=== PATIENT | male | born 1955 | race Caucasian/White ===

== ENCOUNTER 2017-09-19 17:50 | Emergency (ER) | payer MEDICARE ==
[2017-09-19] MEDS ORDERED: Ketorolac 60 MG/2 ML SDV IM ONE (18:13)
--- NOTE | 2017-09-19 18:15 | EDM.PDOC ---
ED HPI GENERAL MEDICAL PROBLEM - General Chief Complaint: Lower Extremity Injury/Pain Stated Complaint: PAIN RT KNEE Time Seen by Provider: 09/19/17 18:00 Source of Information: Reports: Patient History Limitations: Reports: No Limitations - History of Present Illness INITIAL COMMENTS - FREE TEXT/NARRATIVE: History of present illness: [62-year-old male comes in complaining of right knee pain. Patient indicates he is having pain status post mechanical fall and subsequently that has been causing him unbearable pain and he is suspicious that he has some nature of significant injury to the knee consistent with injury and then to his previous knee in the past] Review of systems: As per history of present illness and below otherwise all systems reviewed and negative. Past medical history: As per history of present illness and as reviewed below otherwise noncontributory. Surgical history: As per history of present illness and as reviewed below otherwise noncontributory. Social history: No reported history of drug or alcohol abuse. Family history: As per history of present illness and as reviewed below otherwise noncontributory. Physical exam: HEENT: Atraumatic, normocephalic, pupils reactive, negative for conjunctival pallor or scleral icterus, mucous membranes moist, throat clear, neck supple, nontender, trachea midline. Lungs: Clear to auscultation, breath sounds equal bilaterally, chest nontender. Heart: S1S2, regular, negative for clicks, rubs, or JVD. Abdomen: Soft, nondistended, nontender. Negative for masses or hepatosplenomegaly. Negative for costovertebral tenderness. Pelvis: Stable nontender. Genitourinary: Deferred. Rectal: Deferred. Extremities: Right knee with a significant amount of pain and guarding without obvious trauma negative for cords or calf pain. Neurovascular unremarkable. Neuro: Awake, alert, oriented. Cranial nerves II through XII unremarkable. Cerebellum unremarkable. Motor and sensory unremarkable throughout. Exam nonfocal. X-ray negative for acute changes Diagnostics: [X-ray] Therapeutics: [] Impression: [Right knee pain] Plan: [Pain medication follow-up with orthopedics] Definitive disposition and diagnosis as appropriate pending reevaluation and review of above. Right Knee Pain Score (Numeric/FACES): 8 - Related Data Allergies Allergy/AdvReac Type Severity Reaction Status Date / Time erythromycin base Allergy Hallucinati Verified 09/19/17 18:08 [Erythromycin Base] ons morphine Allergy Anxiety Verified 09/19/17 18:08 pork derived (porcine) Allergy Nausea and Verified 09/19/17 18:08 Vomiting Sulfa (Sulfonamide Allergy Other Verified 09/19/17 18:08 Antibiotics) Home Meds: Home Meds Insulin Detemir [Levemir Flextouch] 45 units SUBCUT QAM 05/21/16 [History] Potassium Chloride [Klor-Con 10] 10 meq PO BID 05/21/16 [History] Clopidogrel [Plavix] 75 mg PO DAILY 08/14/16 [History] Metoprolol Succinate [Toprol XL] 25 mg PO DAILY 08/14/16 [History] Furosemide 40 mg PO BID 08/15/16 [History] Insulin Aspart [Novolog Flexpen] 25 units SUBCUT ACDINNER 08/15/16 [History] Insulin Aspart [Novolog Flexpen] 25 units SUBCUT ACLUNCH 08/15/16 [History] Lisinopril 10 mg PO DAILY 08/15/16 [History] atorvaSTATin Calcium [Atorvastatin Calcium] 40 mg PO DAILY 08/15/16 [History] Amoxicillin/Clavulanate K [Augmentin 875 MG/125 MG] 1 tab PO Q12HR #8 tablet 12/28 [Rx] Insulin Aspart [NovoLOG] 25 unit SUBCUT ACBREAKFAST #4 pen 08/17/16 [Rx] Insulin Aspart [Novolog Flexpen] See Protocol SQ ACBREAKFAST #5 pen 08/17/16 [Rx ] Insulin Aspart [Novolog Flexpen] See Protocol SQ ACDINNER #3 pen 08/17/16 [Rx] Insulin Detemir [Levemir] 25 unit SQ BEDTIME #10 ml 08/17/16 [Rx] Nicotine [Habitrol] 14 mg TRDERM DAILY #14 patch 08/17/16 [Rx] Insulin Aspart [NovoLOG] See Protocol SUBCUT ACLUNCH #2 pen 08/18/16 [Rx] Past Medical History HEENT History: Reports: Impaired Vision Other HEENT History: wears glasses, has upper and lower dentutes Cardiovascular History: Reports: High Cholesterol, Hypertension, [place] Respiratory History: Reports: Sleep Apnea Other Respiratory History: uses CPAP Gastrointestinal History: Reports: GERD Genitourinary History: Reports: Renal Calculus Musculoskeletal History: Reports: Back Pain, Chronic, Fracture Other Musculoskeletal History: hx of fx ribs and fingers Neurological History: Reports: Concussion, Migraines, Seizure Other Neuro History: hx of seizures as a child, none for 40 years Psychiatric History: Reports: None Endocrine/Metabolic History: Reports: Diabetes, Type II, Obesity/BMI 30+ Hematologic History: Reports: None Immunologic History: Reports: None, Other (See Below) Other Immunologic History: 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, the last was 8 years ago Oncologic (Cancer) History: Reports: None Dermatologic History: Reports: Other (See Below) Other Dermatologic History: dry spots on back - Infectious Disease History Infectious Disease History: Reports: MRSA - Past Surgical History Head Surgeries/Procedures: Reports: None Cardiovascular Surgical History: Reports: Coronary Artery Bypass GI Surgical History: Reports: Appendectomy, Colonoscopy, Hernia, Inguinal Musculoskeletal Surgical History: Reports: Shoulder Surgery Social & Family History - Family History Family Medical History: Noncontributory - Tobacco Use Smoking Status *Q: Unknown Ever Smoked Years of Tobacco use: 44 Packs/Tins Daily: 0.5 Used Tobacco, but Quit: No Second Hand Smoke Exposure: Yes - Caffeine Use Caffeine Use: Reports: Coffee, Soda - Alcohol Use Days Per Week of Alcohol Use: 0 - Recreational Drug Use Recreational Drug Use: No Review of Systems - Review of Systems Review Of Systems: See Below (See history of present illness) ED EXAM, GENERAL - Physical Exam Exam: See Below (History of present illness) Course - Vital Signs Last Recorded V/S: Last Vital Signs Temp 36.4 C 09/19/17 18:08 Pulse 80 09/19/17 18:08 Resp 18 09/19/17 18:08 BP 149/69 H 09/19/17 18:08 Pulse Ox 97 09/19/17 18:08 - Orders/Labs/Meds Orders: Active Orders 24 hr Category Date Time Status Knee 3V Rt [CR] Stat Exams 09/19/17 18:13 Taken Meds: Medications Discontinued Medications Generic Name Dose Route Start Last Admin Trade Name Freq PRN Reason Stop Dose Admin Ketorolac Tromethamine 60 mg 09/19/17 18:13 Toradol IM 09/19/17 18:14 ONETIME ONE Departure - Departure Time of Disposition: 20:22 Disposition: Home, Self-Care 01 Condition: Good Clinical Impression: Knee pain, right - Discharge Information Referrals: Meenakshi,Anshul, DO [Primary Care Provider] - Forms: ED Department Discharge Additional Instructions: The following information is given to patients seen in the emergency department who are being discharged to home. This information is to outline your options for follow-up care. We provide all patients seen in our emergency department with a follow-up referral. The need for follow-up, as well as the timing and circumstances, are variable depending upon the specifics of your emergency department visit. If you don't have a primary care physician on staff, we will provide you with a referral. We always advise you to contact your personal physician following an emergency department visit to inform them of the circumstance of the visit and for follow-up with them and/or the need for any referrals to a consulting specialist. The emergency department will also refer you to a specialist when appropriate. This referral assures that you have the opportunity for follow-up care with a specialist. All of these measure are taken in an effort to provide you with optimal care, which includes your follow-up. Under all circumstances we always encourage you to contact your private physician who remains a resource for coordinating your care. When calling for follow-up care, please make the office aware that this follow-up is from your recent emergency room visit. If for any reason you are refused follow-up, please contact the [facility] Emergency Department at and asked to speak to the emergency department charge nurse. The x-ray of your knee was negative for any acute changes This does not mean there was no soft tissue injury as discussed you are being provided an orthopedic referral for further diagnostic evaluation and workup of your knee pain Please take pain medication as prescribed follow up with your primary care provider in 2-3 days return to ED as needed as discussed - My Orders Last 24 Hours: My Active Orders 09/19/17 18:13 Knee 3V Rt [CR] Stat - Assessment/Plan Last 24 Hours: My Active Orders 09/19/17 18:13 Knee 3V Rt [CR] Stat
[2017-09-19 21:03] VITALS: BP 137/69
--- NOTE | 2017-09-21 10:42 | CR ---
EXAM DATE: 09/19/17 PATIENT'S AGE: 62 Patient: JENSEN HARP Facility: [place], [place] Site . Site : 1955 Study: XRay Knee Right [id number]/6/[id number] 7:08:35 PM Ordering Physician: Doctor Sanchez Final Report: INDICATION: Right knee pain. TECHNIQUE: Knee radiographs 3 views COMPARISON: None FINDINGS: Bones: Alignment is normal. No acute fractures or aggressive osseous lesions seen. Joint spaces: Minimal narrowing of the medial compartment with tiny medial marginal osteophytes and tibial spurring. No joint effusion. Soft tissues: Surgical clips medial to the proximal right tibia. IMPRESSION: 1. No acute osseous injuries are identified. No joint effusion. Minimal degenerative change of the right knee, involving the medial compartment. Dictated by Escobar Thomas MD @ 09/19/2017 7:40:20 PM Dictated by: Escobar Thomas MD @ 09/19/2017 19:40:46 (Electronic Signature) Report Signed by Proxy. CONCHITA
== END 2017-09-19 20:37 | disposition home or self-care (01) ==
LOC: MW.ED 17:50
DX: M25.561 Pain in right knee (principal); E78.00 Pure hypercholesterolemia, unspecified; I10 Essential (primary) hypertension; E11.9 Type 2 diabetes mellitus without complications; Z88.1 Allergy status to other antibiotic agents; Z88.2 Allergy status to sulfonamides; Z88.5 Allergy status to narcotic agent; Z79.899 Other long term (current) drug therapy; Z79.4 Long term (current) use of insulin
CPT/HCPCS: 73562-26-RT; 73562-RT; 99283

== ENCOUNTER 2019-08-15 07:12 | Day surgery (SDC) | payer MEDICARE ==
[~2019-08-15 07:12] MED LIST: Lactated Ringers 1,000 ML IV SCH; Lidocaine 2% 5 ML SDV ONE; Midazolam 1 MG/ML 2 ML SDV ONE; Propofol 200 MG/20 ML SDV ONE; fentaNYL 100 MCG/2 ML SDV ONE
--- NOTE | 2019-08-15 08:04 | PCM.PREANE ---
Preanesthetic Assessment - Anesthesia/Transfusion/Family Hx Anesthesia History: Prior Anesthesia Without Reaction Family History of Anesthesia Reaction: No Transfusion History: Prior Transfusion Without Reaction - Review of Systems General: No Symptoms Pulmonary: No Symptoms Cardiovascular: No Symptoms Gastrointestinal: No Symptoms Neurological: No Symptoms - Physical Assessment NPO Status Date: 08/14/19 Vital Signs: Last Vital Signs Temp 96.8 F 08/15/19 07:24 Pulse 77 08/15/19 07:24 Resp 14 08/15/19 07:24 BP 101/59 L 08/15/19 07:24 Pulse Ox 98 08/15/19 07:24 Height: 5 ft 9 in Weight: 97.522 kg ASA Class: 3 Mental Status: Alert & Oriented x3 Airway Class: Mallampati = 2 Dentition: Reports: Normal Dentition ROM/Head Extension: Full Lungs: Clear to Auscultation, Normal Respiratory Effort Cardiovascular: Regular Rate, Regular Rhythm - Lab Values: Laboratory Last Values POC Glucose 228 mg/dL (60-110) H 08/15/19 07:26 - Allergies Allergies/Adverse Reactions: Allergies Allergy/AdvReac Type Severity Reaction Status Date / Time erythromycin base Allergy Hallucinati Verified 08/15/19 07:56 [Erythromycin Base] ons morphine Allergy Anxiety Verified 08/15/19 07:56 pork derived (porcine) Allergy Nausea and Verified 08/15/19 07:56 Vomiting Sulfa (Sulfonamide Allergy Other Verified 08/15/19 07:57 Antibiotics) - Blood Blood Available: No - Acknowledgements Anesthesia Type Planned: General Anesthesia Pt an Appropriate Candidate for the Planned Anesthesia: Yes Alternatives and Risks of Anesthesia Discussed w Pt/Guardian: Yes Pt/Guardian Understands and Agrees with Anesthesia Plan: Yes Additional Comments: PMH: 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 CAD- ami in 2014, 3 vessel CABG in 2014 htn, hld, dm- last insulin 2230= long acting only- am ooppoou=438 gerd/gastritis HFpEF - ef 60% in 2018 obesity - bmi=32 ANGELINA- uses CPAP nightly smoker- 1 to 2 packs/day hx of seizure- prob related to CHI- not alcohol withdrawl or epilepsy- on no meds PLAN: TIVA PreAnesthesia Questionnaire HEENT History: Reports: Impaired Vision Other HEENT History: wears glasses, has upper and lower dentutes Cardiovascular History: Reports: Bypass, CAD, High Cholesterol, Hypertension, [place] Other Cardiovascular History: left ventricular diastolic dysfunction Respiratory History: Reports: Pneumonia, Recurrent, Sleep Apnea Other Respiratory History: uses CPAP Gastrointestinal History: Reports: Colon Polyp, Fatty Liver, GERD, Pancreatitis Genitourinary History: Reports: Renal Calculus Musculoskeletal History: Reports: Arthritis, Back Pain, Chronic, Fracture, Osteoarthritis Other Musculoskeletal History: hx of fx ribs and fingers Neurological History: Reports: Concussion, Head Trauma, Migraines, Seizure Other Neuro History: hx of seizures as a child, none for 40 years, migraines as a child Psychiatric History: Reports: None Endocrine/Metabolic History: Reports: Diabetes, Type II, IDDM, Obesity/BMI 30+ Hematologic History: Reports: Blood Transfusion(s), Iron Deficiency Immunologic History: Reports: None, Other (See Below) Other Immunologic History: 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, the last was 8 years ago Oncologic (Cancer) History: Reports: None Dermatologic History: Reports: None, Other (See Below) - Infectious Disease History Infectious Disease History: Reports: MRSA - Past Surgical History Head Surgeries/Procedures: Reports: None HEENT Surgical History: Reports: Tonsillectomy Cardiovascular Surgical History: Reports: Coronary Artery Bypass Other Cardiovascular Surgeries/Procedures: January 2015 triple bypass Respiratory Surgical History: Reports: None GI Surgical History: Reports: Appendectomy, Colonoscopy, EGD, Hernia, Inguinal Other GI Surgeries/Procedures: ventral hernia repair x3 Male Surgical History: Reports: Lithotripsy (ESWL) Other Male Surgeries/Procedures: able to pass several kidney stones Endocrine Surgical History: Reports: None Neurological Surgical History: Reports: None Musculoskeletal Surgical History: Reports: Arthroscopic Knee, Shoulder Surgery Other Musculoskeletal Surgeries/Procedures:: surgery for dislocated rt shoulder Oncologic Surgical History: Reports: None Dermatological Surgical History: Reports: None - SUBSTANCE USE Smoking Status *Q: Current Every Day Smoker Tobacco Use Within Last Twelve Months: Cigarettes - HOME MEDS Home Medications: Home Meds Potassium Chloride [Klor-Con 10] 10 meq PO ASDIRECTED 05/21/16 [History] Metoprolol Succinate [Toprol XL] 25 mg PO DAILY 08/14/16 [History] Furosemide 40 mg PO DAILY PRN 08/15/16 [History] atorvaSTATin Calcium [Atorvastatin Calcium] 40 mg PO BEDTIME 08/15/16 [History] Aspirin [Low Dose Aspirin EC] 81 mg PO DAILY 08/09/19 [History] Calcium Carbonate [Tums] 1 tab.chew CHEW ASDIRECTED PRN 08/09/19 [History] Insulin Glargine,Hum.Rec.Anlog [Basaglar Kwikpen U-100] 90 units SUBCUT DAILY [History] Insulin Lispro [Humalog Kwikpen U-100] 1 injection SUBCUT ASDIRECTED 08/09/19 [ History] metFORMIN HCl [Metformin HCl ER] 500 mg PO BID 08/09/19 [History] - CURRENT (IN HOUSE) MEDS Current Meds: Current Medications Lactated Ringer's (Ringers, Lactated) 1,000 mls @ 125 mls/hr IV ASDIRECTED TIERA Last Admin: 08/15/19 07:47 Dose: 125 mls/hr Discontinued Medications Fentanyl (Sublimaze) Confirm Administered Dose 100 mcg .ROUTE .STK-MED ONE Stop: 08/15/19 07:11 Lidocaine (Xylocaine-Mpf 2%) Confirm Administered Dose 5 ml .ROUTE .STK-MED ONE Stop: 08/15/19 07:11 Midazolam HCl (Versed 1 Mg/Ml) Confirm Administered Dose 2 mg .ROUTE .STK-MED ONE Stop: 08/15/19 07:11 Propofol (Diprivan 20 Ml) Confirm Administered Dose 400 mg .ROUTE .STK-MED ONE Stop: 08/15/19 07:11
[2019-08-15] MEDS ORDERED: Glycopyrrolate 0.2 MG/ML SDV ONE ×2 (08:51→08:56)
[2019-08-15] MEDS ORDERED: ePHEDrine 50 MG/ML SDV ONE (08:56)
--- NOTE | 2019-08-15 09:34 | PCM.OPNOTE ---
- General Post-Op/Procedure Note Date of Surgery/Procedure: 08/15/19 Operative Procedure(s): Esophagogastroduodenoscopy with biopsy. Colonoscopy with cold sigmoid colon polypectomy 2. Pre Op Diagnosis: Gastroesophageal reflux disease. Unexplained weight loss. Personal history of colon polyps. Post-Op Diagnosis: Mild to moderate chronic gastritis. Mild distal esophagitis. Sigmoid colon polyp 2. Anesthesia Technique: MAC (ASA III) Primary Surgeon: Mario Siddiqui Condition: Good Free Text/Narrative:: DICTATION [id number] CPT CODE 96327/51701
[2019-08-15] MEDS ORDERED: Lactated Ringers 1,000 ML IV SCH (09:45)
--- NOTE | 2019-08-15 09:52 | OR ---
SURGEON: Mario Siddiqui M.D. DATE OF PROCEDURE: 08/15/2019 OPERATION PERFORMED: Esophagogastroduodenoscopy with biopsy. PRIMARY SURGEON: Mario Siddiqui MD. ANESTHESIA: MAC. ASA CLASSIFICATION: III. PREOPERATIVE DIAGNOSES: 1. Gastroesophageal reflux disease. 2. Unexplained weight loss. POSTOPERATIVE DIAGNOSES: 1. Mild to moderate chronic gastritis. 2. Mild distal esophagitis. DESCRIPTION OF PROCEDURE: The patient was taken to the endoscopy room and positioned on the endoscopy table in the left lateral decubitus position. Time-out was called for appropriate identification of the patient and procedure. Monitored anesthesia care was provided. The bite block was placed between the patient's teeth. A gastroscope was inserted through the bite block into the oropharynx and advanced without difficulty through the esophagus and stomach into the duodenum where examination was now carried out in a retrograde fashion. The duodenum showed no acute inflammatory changes or ulcerations. The stomach does show mild to moderate chronic gastritis. No acute ulcerations were noted. Biopsies of the distal stomach were obtained to rule out the presence of Helicobacter pylori. The gastroscope was retroflexed to visualize the proximal stomach. No hiatal hernia was noted and there were no significant inflammatory changes or ulcers noted proximally. The gastroscope was then straightened and slowly withdrawn. The greater and lesser curvatures were well visualized. Again, no tumors or polyps were seen in the proximal stomach. The GE junction was well defined and does show some mild inflammatory changes. Separate biopsies of the distal esophagus were obtained. The esophagus itself demonstrates good contractility. No mid or proximal lesions were identified. I did attempt to look at the vocal cords, but I was not able to visualize them well and did not want to run the risk of laryngeal spasm. The gastroscope was then removed with the patient having tolerated this portion of the procedure well. Following colonoscopy, he was taken to recovery room in stable condition. BOZENA / EDIS /[id number]
--- NOTE | 2019-08-15 10:01 | OR ---
SURGEON: Mario Siddiqui M.D. DATE OF PROCEDURE: 08/15/2019 OPERATION PERFORMED: Colonoscopy with cold proximal and distal sigmoid colon polypectomies. PRIMARY SURGEON: Mario Siddiqui MD. ANESTHESIA: MAC. ASA CLASSIFICATION: III. PREOPERATIVE DIAGNOSES: 1. Personal history of colon polyps. 2. Unexplained weight loss. POSTOPERATIVE DIAGNOSIS: Proximal and distal sigmoid colon polyps. DESCRIPTION OF PROCEDURE: With the patient having completed esophagogastroduodenoscopy, he was maintained in the left lateral decubitus position. A colonoscope was inserted into the rectum and advanced with minimal difficulty to the cecum. The cecum was identified by internal landmarks and external pressure. The colonoscope was retroflexed to visualize the ascending colon from below, then straightened and slowly withdrawn. The cecum, ascending colon, hepatic flexure, transverse colon, splenic flexure, and descending colon were very well visualized. No tumors, polyps, diverticula, or angiodysplastic changes were noted. There was no evidence of inflammatory bowel disease. Two polyps were encountered in the sigmoid colon, approximately 20 cm apart, and were removed separately and sent for separate histologic analysis. There was no evidence of sigmoid diverticulosis. The colonoscope was withdrawn to the rectum and retroflexed to visualize the anal orifice from above. No tumors, polyps, or acute hemorrhoidal changes were noted. The colonoscope was then straightened, the rectum aspirated, and the colonoscope removed. The patient tolerated the procedure well and was taken to recovery room in stable condition. BOZENA / EDIS /[id number]
[2019-08-15 10:35] VITALS: BP 139/73; PULSE 79
--- NOTE | 2019-08-15 12:10 | PCM.POSTAN ---
POST ANESTHESIA ASSESSMENT - MENTAL STATUS Mental Status: Alert, Oriented - VITAL SIGNS Vital Signs: Last Vital Signs Temp 98.6 F 08/15/19 09:25 Pulse 79 08/15/19 09:55 Resp 14 08/15/19 09:55 BP 139/73 08/15/19 09:55 Pulse Ox 95 08/15/19 09:55 - RESPIRATORY Respiratory Status: Respiratory Rate WNL, Airway Patent, O2 Saturation Stable - CARDIOVASCULAR CV Status: Pulse Rate WNL, Blood Pressure Stable - GASTROINTESTINAL GI Status: No Symptoms - POST OP HYDRATION Hydration Status: Adequate & Stable
--- NOTE | 2019-08-15 12:10 | PCM48HPAN ---
Post Anesthesia Note - EVALUATION WITHIN 48HRS OF ANESTHETIC Vital Signs in Normal Range: Yes Patient Participated in Evaluation: Yes Respiratory Function Stable: Yes Airway Patent: Yes Cardiovascular Function Stable: Yes Hydration Status Stable: Yes Pain Control Satisfactory: Yes Nausea and Vomiting Control Satisfactory: Yes Mental Status Recovered: Yes Vital Signs: Last Vital Signs Temp 98.6 F 08/15/19 09:25 Pulse 79 08/15/19 09:55 Resp 14 08/15/19 09:55 BP 139/73 08/15/19 09:55 Pulse Ox 95 08/15/19 09:55
== END 2019-08-15 10:34 | disposition home or self-care (01) ==
LOC: MW.SDS 07:12
PROVIDERS: ATTEND Surgery
DX: K21.0 Gastro-esophageal reflux disease with esophagitis (principal); R63.4 Abnormal weight loss; K63.5 Polyp of colon; K29.50 Unspecified chronic gastritis without bleeding; K58.9 Irritable bowel syndrome, unspecified; I11.0 Hypertensive heart disease with heart failure; I50.9 Heart failure, unspecified; I25.10 Atherosclerotic heart disease of native coronary artery without angina pectoris; E78.5 Hyperlipidemia, unspecified; G47.33 Obstructive sleep apnea (adult) (pediatric); M19.90 Unspecified osteoarthritis, unspecified site; G43.909 Migraine, unspecified, not intractable, without status migrainosus; E11.9 Type 2 diabetes mellitus without complications; E66.01 Morbid (severe) obesity due to excess calories; Z79.4 Long term (current) use of insulin; Z88.1 Allergy status to other antibiotic agents; Z86.010 Personal history of colon polyps; Z88.5 Allergy status to narcotic agent; Z91.018 Allergy to other foods; Z88.2 Allergy status to sulfonamides; Z79.82 Long term (current) use of aspirin; Z79.899 Other long term (current) drug therapy; Z90.49 Acquired absence of other specified parts of digestive tract
CPT/HCPCS: 43239; 45378; 82962; J2001; J2250; J2704; J3010; J3490; J7120; 00813

== ENCOUNTER 2020-07-20 06:32 | Day surgery (SDC) | payer MEDICARE ==
[~2020-07-20 06:32] MED LIST changes: -Lidocaine 2% 5 ML SDV ONE; -Midazolam 1 MG/ML 2 ML SDV ONE; -Propofol 200 MG/20 ML SDV ONE; -fentaNYL 100 MCG/2 ML SDV ONE
[2020-07-20] MEDS ORDERED: Lidocaine 1% 20 ML MDV ONE (06:57)
[2020-07-20] MEDS ORDERED: Midazolam 1 MG/ML 2 ML SDV ONE (06:58)
[2020-07-20] MEDS ORDERED: Propofol 200 MG/20 ML SDV ONE (06:58)
[2020-07-20] MEDS ORDERED: Glycopyrrolate 0.2 MG/ML SDV ONE (07:08)
[2020-07-20] MEDS ORDERED: Lidocaine 2% 5 ML SDV ONE (07:08)
--- NOTE | 2020-07-20 07:16 | PCM.PREANE ---
Preanesthetic Assessment - Anesthesia/Transfusion/Family Hx Anesthesia History: Prior Anesthesia Without Reaction Family History of Anesthesia Reaction: No Transfusion History: Prior Transfusion Without Reaction - Review of Systems General: No Symptoms Pulmonary: No Symptoms Cardiovascular: No Symptoms Gastrointestinal: No Symptoms Neurological: No Symptoms Other: Reports: None - Physical Assessment NPO Status Date: 07/19/20 Vital Signs: Last Vital Signs Temp 95.7 F L 07/20/20 06:40 Pulse 78 07/20/20 06:40 Resp 16 07/20/20 06:40 BP 92/60 07/20/20 06:40 Pulse Ox 98 07/20/20 06:40 Height: 5 ft 9 in Weight: 97.522 kg ASA Class: 3 Mental Status: Alert & Oriented x3 Airway Class: Mallampati = 2 Dentition: Reports: Dentures (full upper), Partial (partial lower) ROM/Head Extension: Full Lungs: Clear to Auscultation, Normal Respiratory Effort Cardiovascular: Regular Rate, Regular Rhythm - Allergies Allergies/Adverse Reactions: Allergies Allergy/AdvReac Type Severity Reaction Status Date / Time erythromycin base Allergy Hallucinati Verified 07/16/20 12:58 [Erythromycin Base] ons morphine Allergy Anxiety Verified 07/16/20 12:58 pork derived (porcine) Allergy Nausea and Verified 07/16/20 12:58 Vomiting Sulfa (Sulfonamide Allergy Other Verified 07/16/20 12:58 Antibiotics) - Blood Blood Available: No - Anesthesia Plan Pre-Op Medication Ordered: None - Acknowledgements Anesthesia Type Planned: General Anesthesia (tiva) Pt an Appropriate Candidate for the Planned Anesthesia: Yes Alternatives and Risks of Anesthesia Discussed w Pt/Guardian: Yes Pt/Guardian Understands and Agrees with Anesthesia Plan: Yes Additional Comments: PMH: smoker, barretts, dm2-on insulin- poor controll- HbA1c run consistently in the 13's, lisa-on cpap, cad- cabg in 2014, hx seizure-on no anticonvulsants, RAD, has aortic schlerosis but NO aortic stenosis by echo in Apr 2020 (dx of in active problem list is incorrect), hx of chf but most recent ef was 55-60% PLAN: tiva PreAnesthesia Questionnaire HEENT History: Reports: Impaired Vision Other HEENT History: wears glasses, has upper dentures and lower partial plate Cardiovascular History: Reports: Bypass, CAD, High Cholesterol, Hypertension, [place] Other Cardiovascular History: left ventricular diastolic dysfunction Respiratory History: Reports: COPD, Pneumonia, Recurrent, Sleep Apnea Other Respiratory History: uses CPAP Gastrointestinal History: Reports: Colon Polyp, Fatty Liver, GERD, Pancreatitis Genitourinary History: Reports: Renal Calculus Musculoskeletal History: Reports: Arthritis, Back Pain, Chronic, Fracture, Osteoarthritis Other Musculoskeletal History: hx of fx ribs, fingers and back Neurological History: Reports: Concussion, Head Trauma, Migraines, Seizure Other Neuro History: hx of seizures as a child, none for 40 years, migraines as a child Psychiatric History: Reports: None Endocrine/Metabolic History: Reports: Diabetes, Type II, IDDM, Obesity/BMI 30+ Hematologic History: Reports: Blood Transfusion(s), Iron Deficiency Immunologic History: Reports: Other (See Below) Other Immunologic History: 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, 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 Oncologic (Cancer) History: Reports: None Dermatologic History: Reports: None, Other (See Below) - Infectious Disease History Infectious Disease History: Reports: MRSA Other Infectious Disease History: left leg 11 years ago - Past Surgical History Head Surgeries/Procedures: Reports: None HEENT Surgical History: Reports: Tonsillectomy Cardiovascular Surgical History: Reports: Coronary Artery Bypass Other Cardiovascular Surgeries/Procedures: January 2015 triple bypass Respiratory Surgical History: Reports: None GI Surgical History: Reports: Appendectomy, Colonoscopy, EGD, Hernia, Inguinal Other GI Surgeries/Procedures: ventral hernia repair x3 Male Surgical History: Reports: Lithotripsy (ESWL) Other Male Surgeries/Procedures: able to pass several kidney stones Endocrine Surgical History: Reports: None Neurological Surgical History: Musculoskeletal Surgical History: Reports: Arthroscopic Knee, Shoulder Surgery Other Musculoskeletal Surgeries/Procedures:: surgery for dislocated rt shoulder Oncologic Surgical History: Reports: None Dermatological Surgical History: Reports: None - SUBSTANCE USE Tobacco Use Status *Q: Current Every Day Tobacco User Tobacco Use Within Last Twelve Months: Cigarettes - HOME MEDS Home Medications: Home Meds Metoprolol Succinate [Toprol XL] 25 mg PO BEDTIME 08/14/16 [History] Furosemide 40 mg PO DAILY PRN 08/15/16 [History] atorvaSTATin Calcium [Atorvastatin Calcium] 40 mg PO BEDTIME 08/15/16 [History] Aspirin [Low Dose Aspirin EC] 81 mg PO DAILY 08/09/19 [History] metFORMIN HCl [Metformin HCl ER] 500 mg PO BID 08/09/19 [History] Berberine 1,200 mg PO BID 07/16/20 [History] Cholecalciferol (Vitamin D3) [Vitamin D3] 1 tab PO BEDTIME 07/16/20 [History] Glucosamine Sulfate Dipot Chlr [Glucosamine] 1 tab PO DAILY 07/16/20 [History] Insulin Glargine,Hum.Rec.Anlog [Basaglar Kwikpen U-100] 70 units SUBCUT BEDTIME 07/16/20 [History] Magnesium Oxide [Magnesium] 2 tab PO BEDTIME 07/16/20 [History] Quercetin Dihydrate 23 mg PO BEDTIME 07/16/20 [History] - CURRENT (IN HOUSE) MEDS Current Meds: Current Medications Lactated Ringer's (Ringers, Lactated) 1,000 mls @ 125 mls/hr IV ASDIRECTED TIERA Discontinued Medications Lidocaine HCl (Xylocaine 1%) Confirm Administered Dose 20 ml .ROUTE .STK-MED ONE Stop: 07/20/20 06:58 Midazolam HCl (Versed 1 Mg/Ml) Confirm Administered Dose 2 mg .ROUTE .STK-MED ONE Stop: 07/20/20 06:59 Propofol (Diprivan 20 Ml) Confirm Administered Dose 200 mg .ROUTE .STK-MED ONE Stop: 07/20/20 06:59
--- NOTE | 2020-07-20 08:21 | PCM.OPNOTE ---
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 Hiatal hernia with esophagitis Anesthesia Technique: MAC (ASA III) Primary Surgeon: Mario Siddiqui Canine Service Instructor Trainer: Felicity Combs Condition: Good Free Text/Narrative:: DICTATION [id number] CPT CODE 40577
[2020-07-20] MEDS ORDERED: Lactated Ringers 1,000 ML IV SCH (08:30)
[2020-07-20 08:32] VITALS: BP 132/79; PULSE 67
--- NOTE | 2020-07-20 11:31 | OR ---
SURGEON: Mario Siddiqui M.D. DATE OF PROCEDURE: 07/20/2020 OPERATION PERFORMED: Esophagogastroduodenoscopy with biopsy. PRIMARY SURGEON: Mario Siddiqui M.D. ANESTHESIA: MAC ASA CLASSIFICATION: III. PREOPERATIVE DIAGNOSIS: Chronic reflux esophagitis, suggestive history of Gore esophagus with intestinal metaplasia in the distal esophagus. POSTOPERATIVE DIAGNOSES: 1. Acute gastritis. 2. Hiatal hernia with reflux esophagitis. DESCRIPTION OF PROCEDURE: The patient was taken to the endoscopy room and positioned on the endoscopy table in the supine position. Time-out was called for appropriate identification of the patient and procedure. Monitored anesthesia care was provided. The bite block was placed between the patient's teeth. The gastroscope was inserted through the bite block and advanced without difficulty through the esophagus and stomach into the duodenum. The duodenum did show some acute inflammatory changes. No ulcerations were noted. Duodenal biopsies were obtained. The gastroscope was then withdrawn to the stomach, which now shows an acute gastritis. Again, no ulcerations were noted and no tumors were seen. The scope was retroflexed to visualize the proximal stomach where a hiatal hernia is noted. The scope was then straightened and slowly withdrawn aspirating the stomach as the scope was withdrawn. Again, the hiatal hernia is noted from above. There are certainly some changes in the distal esophagus suggestive of Gore esophagus and biopsies of this area were obtained. The esophagus itself demonstrated fair contractility. No mid or proximal lesions were identified. The vocal cords were not visualized as the scope was withdrawn. The gastroscope was then removed with the patient having tolerated the procedure well. He was taken to recovery room in stable condition. BOZENA / EDIS /[id number]
== END 2020-07-20 08:50 | disposition home or self-care (01) ==
LOC: MW.SDS 06:32
PROVIDERS: ATTEND Surgery
DX: K21.00 Gastro-esophageal reflux disease with esophagitis, without bleeding (principal); K29.00 Acute gastritis without bleeding; K44.9 Diaphragmatic hernia without obstruction or gangrene; I25.10 Atherosclerotic heart disease of native coronary artery without angina pectoris; I50.30 Unspecified diastolic (congestive) heart failure; G47.33 Obstructive sleep apnea (adult) (pediatric); E78.5 Hyperlipidemia, unspecified; E11.9 Type 2 diabetes mellitus without complications; E66.9 Obesity, unspecified; F17.210 Nicotine dependence, cigarettes, uncomplicated; K22.70 Barrett's esophagus without dysplasia; Z88.1 Allergy status to other antibiotic agents; Z88.2 Allergy status to sulfonamides; Z91.018 Allergy to other foods; Z79.82 Long term (current) use of aspirin; Z79.899 Other long term (current) drug therapy; Z79.84 Long term (current) use of oral hypoglycemic drugs; Z98.890 Other specified postprocedural states; Z68.31 Body mass index [BMI] 31.0-31.9, adult
CPT/HCPCS: 43239; 82962; J2001; J2250; J2704; J3490; J7120; 00731; 88305; 88312

== ENCOUNTER 2021-05-04 15:31 | Emergency (ER) | payer MEDICARE, OTHER ==
[2021-05-04] MEDS ORDERED: Aspirin 81 MG Tab.EC PO ONE ×2 (15:57→16:04)
[2021-05-04] MEDS ORDERED: Nitroglycerin 0.4 MG Tab.SL SL ONE (15:57)
[2021-05-04] MEDS ORDERED: Heparin Sodium 5,000 Units/ML Vial IVPUSH ONE (15:58)
[2021-05-04] MEDS ORDERED: Nitroglycerin 0.4 MG Tab.SL ONE (15:59)
[2021-05-04] MEDS ORDERED: Heparin Sodium/0.45% NaCl 500 ML IV SCH ×2 (16:00→16:16)
[2021-05-04 16:01] VITALS: PULSE 76
[2021-05-04] MEDS ORDERED: Aspirin 81 MG Tab.Chew ONE (16:04)
[2021-05-04 16:14] LABS: BLOOD UREA NITROGEN,BUN 14 mg/dL (7.0-18.0); CHLORIDE,CL 99 mmol/L (98-107); GLUCOSE RANDOM 279 mg/dL (74-106); POTASSIUM,K 4.1 mmol/L (3.5-5.1); SODIUM,NA 135 mmol/L (136-148)
[2021-05-04] MEDS ORDERED: Aspirin 81 MG Tab.Chew PO SCH (16:15)
[2021-05-04] MEDS ORDERED: Tenecteplase 50 MG Kit IV STA (16:17)
[2021-05-04] MEDS ORDERED: Tenecteplase 50 MG Kit ONE (16:20)
[2021-05-04 16:21] VITALS: BP 110/70
--- NOTE | 2021-05-04 16:34 | EDM.PDOC ---
ED HPI GENERAL MEDICAL PROBLEM - General Chief Complaint: Cardiovascular Problem Stated Complaint: THINKS HE'S HAVING A HEART ATTACK, CONFUSED Time Seen by Provider: 05/04/21 15:39 - History of Present Illness INITIAL COMMENTS - FREE TEXT/NARRATIVE: Patient presents with chest discomfort. Patient states very shortly prior to arrival he started having some discomfort across both of his shoulders. He felt his thinking was foggy and then developed chest pressure and heaviness. It is in the center of the chest. There is no radiation to the back or elsewhere. It is not tearing. He states that he thinks he is having a heart attack. Patient with a history of hypertension, diabetes, [place], PE, CABG. Patient denies any recent fevers chills cough or productive sputum. There is no marked shortness of breath. No headache slurred speech double vision arm or leg numbness or weakness. Moderate to severe symptoms without exacerbating or alleviating factors. No Covid contacts chest\ Pain Score (Numeric/FACES): 5 - Related Data Allergies Allergy/AdvReac Type Severity Reaction Status Date / Time erythromycin base Allergy Hallucinati Verified 07/16/20 12:58 [Erythromycin Base] ons morphine Allergy Anxiety Verified 07/16/20 12:58 pork derived (porcine) Allergy Nausea and Verified 07/16/20 12:58 Vomiting Sulfa (Sulfonamide Allergy Other Verified 07/16/20 12:58 Antibiotics) Past Medical History HEENT History: Reports: Impaired Vision Other HEENT History: wears glasses, has upper dentures and lower partial plate Cardiovascular History: Reports: Bypass, CAD, High Cholesterol, Hypertension, [place] Other Cardiovascular History: left ventricular diastolic dysfunction Respiratory History: Reports: COPD, Pneumonia, Recurrent, Sleep Apnea Other Respiratory History: uses CPAP Gastrointestinal History: Reports: Colon Polyp, Fatty Liver, GERD, Pancreatitis Genitourinary History: Reports: Renal Calculus Musculoskeletal History: Reports: Arthritis, Back Pain, Chronic, Fracture, Osteoarthritis Other Musculoskeletal History: hx of fx ribs, fingers and back Neurological History: Reports: Concussion, Head Trauma, Migraines, Seizure Other Neuro History: hx of seizures as a child, none for 40 years, migraines as a child Psychiatric History: Reports: None Endocrine/Metabolic History: Reports: Diabetes, Type II, IDDM, Obesity/BMI 30+ Hematologic History: Reports: Blood Transfusion(s), Iron Deficiency Immunologic History: Reports: Other (See Below) Other Immunologic History: 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, 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 Oncologic (Cancer) History: Reports: None Dermatologic History: Reports: None, Other (See Below) - Infectious Disease History Infectious Disease History: Reports: MRSA Other Infectious Disease History: left leg 11 years ago - Past Surgical History Head Surgeries/Procedures: Reports: None HEENT Surgical History: Reports: Tonsillectomy Cardiovascular Surgical History: Reports: Coronary Artery Bypass Other Cardiovascular Surgeries/Procedures: January 2015 triple bypass Respiratory Surgical History: Reports: None GI Surgical History: Reports: Appendectomy, Colonoscopy, EGD, Hernia, Inguinal Other GI Surgeries/Procedures: ventral hernia repair x3 Male Surgical History: Reports: Lithotripsy (ESWL) Other Male Surgeries/Procedures: able to pass several kidney stones Endocrine Surgical History: Reports: None Musculoskeletal Surgical History: Reports: Arthroscopic Knee, Shoulder Surgery Other Musculoskeletal Surgeries/Procedures:: surgery for dislocated rt shoulder Oncologic Surgical History: Reports: None Dermatological Surgical History: Reports: None Social & Family History - Family History Family Medical History: No Pertinent Family History - Caffeine Use Caffeine Use: Reports: Coffee ED ROS GENERAL - Review of Systems Review Of Systems: See Below Constitutional: Denies: Fever, Chills Respiratory: Denies: Shortness of Breath, Cough Cardiovascular: Reports: Chest Pain GI/Abdominal: Denies: Abdominal Pain, Diarrhea, Vomiting : Denies: Flank Pain Musculoskeletal: Reports: Shoulder Pain Skin: Denies: Rash Neurological: Reports: Other (Foggy thinking). Denies: Headache Psychiatric: Denies: Anxiety Hematologic/Lymphatic: Reports: Other (No recent bleeding or recent surgeries) ED EXAM, GENERAL - Physical Exam Exam: See Below Free Text/Narrative:: CONSTITUTIONAL: well appearing in no acute distress SKIN: Warm, dry, and intact without rash HENT: Normocephalic, atraumatic, PULMONARY: clear to ausculation bilaterally. No rales, rhonchi, wheezing CARDIOVASCULAR: regular rate, No murmur, rubs, or gallops. Midline sternotomy scar GASTROINTESTINAL: soft, nondistended, nontender NEUROLOGIC: normal speech, II-XII intact. light touch/5/5 power equal and symmetric in upper and lower extremities without deficit patient a little bit slow to respond because he appears uncomfortable but he is alert and oriented and answers questions exactly appropriately MUSCULOSKELETAL: no gross deformities, atraumatic PSYCHIATRIC: normal mood and affect #1 Interpretation Time: 15:34 Rhythm: NSR EKG Interpretation Comments: 74, normal sinus rhythm, wavy baseline. Inferior lateral ST elevation with ST depression in V1 V2. #2 Interpretation Time: 15:42 EKG Interpretation Comments: 71, normal sinus rhythm, ST elevation inferior lateral leads with ST depression in V1 V2. This was compared to EKG from 02/13/2016 which is the last EKG that we have. There is significant change #3 Interpretation Time: 15:50 EKG Interpretation Comments: 76, normal sinus rhythm, ST elevation in inferior leads. No definitive ST elevation in V7 to V9 Course - Vital Signs Text/Narrative:: Differential diagnosis: STEMI, unstable angina, pneumonia, Covid, dissection, COMPACTING MACHINE OPERATOR/TENDER pathology, other Patient presents to the emergency department as outlined above. Patient's initial complaints were shoulder pain. Patient did have some degree of slowed processing but there were no overt focal neurologic deficits. Patient had no tachycardia chest pain to the back and there is no obvious widened mediastinum on portable chest x-ray. EKG was sent to the manager income tax. It was thought that the patient would likely be at the [facility] prior to 90 minutes. Transfer process was immediately started. The manager income tax thought that it was best for the patient to get the patient to [facility] if this was the expected timing. As the flight crew was in route to the hospital I became concerned that he would not make it to the [facility] within 90 minutes. It would just be over 90 minutes but, nonetheless, this would be arrival not door to balloon time. When this was determined cardiology was immediately called back. Troponin came back elevated. Decision was made to give TNK. Last Recorded V/S: Last Vital Signs Temp 35.3 C L 05/04/21 15:31 Pulse 76 05/04/21 16:14 Resp 18 05/04/21 16:14 BP 110/70 05/04/21 16:14 Pulse Ox 95 05/04/21 16:14 - Orders/Labs/Meds Orders: Active Orders 24 hr Category Date Time Status Chest 1V Frontal [CR] Stat Exams 05/04/21 15:51 Taken CORONAVIRUS COVID-19 GERALD [MOLEC] Stat Lab 05/04/21 16:00 Received DRUG SCREEN, URINE [URCHEM] Stat Lab 05/04/21 16:02 Ordered Aspirin Med 05/04/21 16:15 Active 162 mg PO DAILY Heparin Sodium/0.45% NaCl [Heparin 25,000 Units in 1/2 Med 05/04/21 16:16 Active NS 500 ML] 500 ml IV TITRATE Medication Orders Aspirin (Aspirin 81 Mg Tab.Chew) 162 mg PO DAILY TIERA Last Admin: 05/04/21 16:06 Dose: 162 mg Documented by: SEWATIF Heparin Sodium/Sodium Chloride (Heparin 25,000 Units In 1/2 Ns 500 Ml) 500 mls @ 20 mls/hr IV TITRATE TIERA; Protocol Labs: Laboratory Tests 05/04/21 05/04/21 05/04/21 Range/Units 15:43 15:43 15:43 WBC 9.17 (4.0-11.0) K/uL RBC 5.75 (4.50-5.90) M/uL Hgb 17.6 H (13.0-17.0) g/dL Hct 48.2 (38.0-50.0) % MCV 83.8 (80.0-98.0) fL MCH 30.6 (27.0-32.0) pg MCHC 36.5 (31.0-37.0) g/dL RDW Std Deviation 41.8 (28.0-62.0) fl RDW Coeff of [place]he[place] 14 (11.0-15.0) % Plt Count 237 (150-400) K/uL MPV 8.90 (7.40-12.00) fL Neut % (Auto) 55.5 (48.0-80.0) % Lymph % (Auto) 31.7 (16.0-40.0) % [place] % (Auto) 8.5 (0.0-15.0) % Eos % (Auto) 3.8 (0.0-7.0) % Baso % (Auto) 0.5 (0.0-1.5) % Neut # (Auto) 5.1 (1.4-5.7) K/uL Lymph # (Auto) 2.9 H (0.6-2.4) K/uL [place] # (Auto) 0.8 (0.0-0.8) K/uL Eos # (Auto) 0.4 (0.0-0.7) K/uL Baso # (Auto) 0.1 (0.0-0.1) K/uL Nucleated RBC % 0.0 /100WBC Nucleated RBCs # 0 K/uL APTT 21.9 (18.6-31.3) SEC Sodium 135 L (136-148) mmol/L Potassium 4.1 (3.5-5.1) mmol/L Chloride 99 (98-107) mmol/L Carbon Dioxide 29.0 (21.0-32.0) mmol/L BUN 14 (7.0-18.0) mg/dL Creatinine 0.9 (0.8-1.3) mg/dL Est Cr Clr Drug Dosing TNP Estimated GFR (MDRD) > 60.0 ml/min Glucose 279 H (74-106) mg/dL Calcium 9.5 (8.5-10.1) mg/dL Total Bilirubin 0.3 (0.2-1.0) mg/dL AST 12 L (15-37) IU/L ALT 23 (14-63) IU/L Alkaline Phosphatase 78 (46-116) U/L Troponin I 0.099 H* (0.000-0.056) ng/mL Total Protein 7.6 (6.4-8.2) g/dL Albumin 3.5 (3.4-5.0) g/dL Globulin 4.1 H (2.6-4.0) g/dL Albumin/Globulin Ratio 0.9 (0.9-1.6) Ethyl Alcohol mg/dL 05/04/21 Range/Units 15:43 WBC (4.0-11.0) K/uL RBC (4.50-5.90) M/uL Hgb (13.0-17.0) g/dL Hct (38.0-50.0) % MCV (80.0-98.0) fL MCH (27.0-32.0) pg MCHC (31.0-37.0) g/dL RDW Std Deviation (28.0-62.0) fl RDW Coeff of [place] (11.0-15.0) % Plt Count (150-400) K/uL MPV (7.40-12.00) fL Neut % (Auto) (48.0-80.0) % Lymph % (Auto) (16.0-40.0) % [place] % (Auto) (0.0-15.0) % Eos % (Auto) (0.0-7.0) % Baso % (Auto) (0.0-1.5) % Neut # (Auto) (1.4-5.7) K/uL Lymph # (Auto) (0.6-2.4) K/uL [place] # (Auto) (0.0-0.8) K/uL Eos # (Auto) (0.0-0.7) K/uL Baso # (Auto) (0.0-0.1) K/uL Nucleated RBC % /100WBC Nucleated RBCs # K/uL APTT (18.6-31.3) SEC Sodium (136-148) mmol/L Potassium (3.5-5.1) mmol/L Chloride (98-107) mmol/L Carbon Dioxide (21.0-32.0) mmol/L BUN (7.0-18.0) mg/dL Creatinine (0.8-1.3) mg/dL Est Cr Clr Drug Dosing Estimated GFR (MDRD) ml/min Glucose (74-106) mg/dL Calcium (8.5-10.1) mg/dL Total Bilirubin (0.2-1.0) mg/dL AST (15-37) IU/L ALT (14-63) IU/L Alkaline Phosphatase (46-116) U/L Troponin I (0.000-0.056) ng/mL Total Protein (6.4-8.2) g/dL Albumin (3.4-5.0) g/dL Globulin (2.6-4.0) g/dL Albumin/Globulin Ratio (0.9-1.6) Ethyl Alcohol <3 mg/dL Meds: Medications Generic Name Dose Route Start Last Admin Trade Name Freq PRN Reason Stop Dose Admin Aspirin 162 mg 05/04/21 16:15 05/04/21 16:06 Aspirin 81 Mg Tab.Chew PO 162 mg DAILY TIERA Administration Heparin Sodium/Sodium Chloride 500 mls @ 20 mls/hr 05/04/21 16:16 Heparin 25,000 Units In 1/2 Ns 500 Ml IV TITRATE TIERA Protocol 9.524 UNITS/KG/HR Discontinued Medications Generic Name Dose Route Start Last Admin Trade Name Freq PRN Reason Stop Dose Admin Aspirin 162 mg 05/04/21 15:57 05/04/21 16:06 Aspirin 81 Mg Tab.Ec PO 05/04/21 15:58 Not Given ONETIME ONE Aspirin 162 mg 05/04/21 16:04 05/04/21 16:06 Aspirin 81 Mg Tab.Ec PO 05/04/21 16:05 Not Given ONETIME ONE Aspirin Confirm 05/04/21 16:04 05/04/21 16:06 Aspirin 81 Mg Tab.Chew Administered 05/04/21 16:05 Not Given Dose 162 mg .ROUTE .STK-MED ONE Heparin Sodium (Porcine) 4,000 units 05/04/21 15:58 05/04/21 16:08 Heparin Sodium 5,000 Units/Ml Vial IVPUSH 05/04/21 15:59 4,000 units .BOLUS ONE Administration Heparin Sodium/Sodium Chloride 500 mls @ 20 mls/hr 05/04/21 16:00 Heparin 25,000 Units In 1/2 Ns 500 Ml IV TITRATE TIERA Protocol Nitroglycerin 0.2 mg 05/04/21 15:57 05/04/21 16:00 Nitroglycerin 0.4 Mg Tab.Sl SL 05/04/21 15:58 0.2 mg ONETIME ONE Administration Nitroglycerin Confirm 05/04/21 15:59 05/04/21 16:02 Nitroglycerin 0.4 Mg Tab.Sl Administered 05/04/21 16:00 Not Given Dose 0.4 mg .ROUTE .STK-MED ONE Tenecteplase 50 mg 05/04/21 16:17 Tenecteplase 50 Mg Kit IV 05/04/21 16:18 STAT STA Protocol Tenecteplase Confirm 05/04/21 16:20 Tenecteplase 50 Mg Kit Administered 05/04/21 16:21 Dose 50 mg .ROUTE .STK-MED ONE Departure - Departure Time of Disposition: 16:45 Disposition: DC/Tfer to Acute Hospital 02 Reason for Transfer *Q: Primary PCI Indicated Condition: Fair Clinical Impression: STEMI (ST elevation myocardial infarction) Referrals: PCP,None [Primary Care Provider] - Sepsis Event Note (ED) - Evaluation Sepsis Screening Result: No Definite Risk - Focused Exam Vital Signs: Vital Signs Temp Pulse Resp BP BP Pulse Ox 05/04/21 16:14 76 18 110/70 95 05/04/21 16:06 80 119/76 96 05/04/21 16:00 136/83 05/04/21 15:31 35.3 C L 76 16 136/75 98 - My Orders Last 24 Hours: My Active Orders 05/04/21 15:51 Chest 1V Frontal [CR] Stat 05/04/21 16:00 CORONAVIRUS COVID-19 GERALD [MOLEC] Stat 05/04/21 16:02 DRUG SCREEN, URINE [URCHEM] Stat 05/04/21 16:15 Aspirin 162 mg PO DAILY 05/04/21 16:16 Heparin Sodium/0.45% NaCl [Heparin 25,000 Units in 1/2 NS 500 ML] 500 ml IV TITRATE - Assessment/Plan Last 24 Hours: My Active Orders 05/04/21 15:51 Chest 1V Frontal [CR] Stat 05/04/21 16:00 CORONAVIRUS COVID-19 GERALD [MOLEC] Stat 05/04/21 16:02 DRUG SCREEN, URINE [URCHEM] Stat 05/04/21 16:15 Aspirin 162 mg PO DAILY 05/04/21 16:16 Heparin Sodium/0.45% NaCl [Heparin 25,000 Units in 1/2 NS 500 ML] 500 ml IV TITRATE
--- NOTE | 2021-05-04 16:44 | CR ---
INDICATION: Possible myocardial infarction. Chest pain. TECHNIQUE: AP portable chest x-ray. COMPARISON: Chest x-ray 06/23/2018. FINDINGS: The mild ill-defined areas of nodular opacity in both lungs on CT 11/09/2020 are not well appreciated on this exam and will need to be followed with a future CT. Most recently shallow inspiration. Stable changes sternotomy. Heart size within normal limits. Mild linear atelectasis or scarring left mid lung. No focal dense infiltrate or consolidation in either lung. Chest otherwise unremarkable. Dictated by Warner Fritz MD @ 05/04/2021 4:42:[address] Warner Fritz @ May 04 2021 4:42PM
== END 2021-05-04 16:27 ==
LOC: MW.ED 15:31
DX: I21.4 Non-ST elevation (NSTEMI) myocardial infarction (principal); I25.10 Atherosclerotic heart disease of native coronary artery without angina pectoris; E78.00 Pure hypercholesterolemia, unspecified; I10 Essential (primary) hypertension; I25.2 Old myocardial infarction; J44.9 Chronic obstructive pulmonary disease, unspecified; E11.9 Type 2 diabetes mellitus without complications; E66.9 Obesity, unspecified; Z68.30 Body mass index [BMI] 30.0-30.9, adult; Z95.1 Presence of aortocoronary bypass graft; Z88.1 Allergy status to other antibiotic agents; Z88.5 Allergy status to narcotic agent; Z88.2 Allergy status to sulfonamides; Z88.8 Allergy status to other drugs, medicaments and biological substances
CPT/HCPCS: 36415; 37195; 71045; 80053; 80307; 84484; 85025; 85730; 93005; 96374; 99285; A9270; J1644; J3101; U0002; 93010

== ENCOUNTER 2021-06-26 13:16 | Observation (INO) | payer MEDICARE, OTHER ==
[2021-06-26] MEDS ORDERED: Acetaminophen 500 MG Tab PO ONE (14:06)
--- NOTE | 2021-06-26 14:36 | CR ---
INDICATION: Shortness of breath. TECHNIQUE: Chest 1 view. COMPARISON: Chest radiograph 05/04/2021. FINDINGS: Defibrillator pad over the right chest. No focal consolidation, pleural effusion, or pneumothorax. Heart size within normal limits for portable technique. Normal pulmonary vascularity. Sternotomy. The bones are unremarkable. IMPRESSION: No acute cardiopulmonary findings. Dictated by Ludivina Coppola MD @ 06/26/2021 2:34:55 PM (Electronically Signed)
[2021-06-26 14:41] LABS: BLOOD UREA NITROGEN,BUN 22 mg/dL (7.0-18.0); CARBON DIOXIDE,CO2 30.6 mmol/L (21.0-32.0); CHLORIDE,CL 99 mmol/L (98-107); GLUCOSE RANDOM 352 mg/dL (74-106); POTASSIUM,K 4.8 mmol/L (3.5-5.1); SODIUM,NA 136 mmol/L (136-148)
[2021-06-26] MEDS ORDERED: Iopamidol 755 MG/ML 500 ML Multipack Bottle IVPUSH STA (15:50)
--- NOTE | 2021-06-26 16:10 | CT ---
INDICATION: Right posterior headaches. COMPARISON: None. TECHNIQUE: Noncontrast CT head. FINDINGS: Normal brain parenchymal morphology. No acute intracranial hemorrhage, acute infarct, mass effect, or fracture. No midline shift. No abnormal ventricular dilatation. Normal calvarium and skull base. Visualized paranasal sinuses and mastoid air cells are clear. Normal orbits bilaterally. IMPRESSION: 1. No acute intracranial abnormality. 2. Normal brain parenchymal morphology. Please note that all CT scans at this facility use dose modulation, iterative reconstruction, and/or weight-based dosing when appropriate to reduce radiation dose to as low as reasonably achievable. Dictated by Jerde Mcwilliams MD @ 06/26/2021 4:10:06 PM (Electronically Signed)
--- NOTE | 2021-06-26 16:17 | CT ---
DATE: 06/26/2021. CLINICAL HISTORY: Right posterior headache. TECHNIQUE: Standard helical CT image acquisition through the head following the administration of intravenous contrast was performed. Multiplanar reconstructed images performed on a separate workstation. COMPARISON: None available. FINDINGS: The petrous, cavernous, and supraclinoid segments of the internal carotid arteries are patent. The anterior and middle cerebral arteries are patent. The anterior communicating artery is visualized and is within normal limits. The intracranial vertebral arteries, basilar trunk, and posterior cerebral arteries are patent. Advanced intracranial atherosclerosis, most pronounced in the carotid siphons. IMPRESSION: Intracranial atherosclerosis without intracranial proximal large vessel occlusion or flow limiting luminal stenosis. Please note that all CT scans at this facility use dose modulation, iterative reconstruction, and/or weight-based dosing when appropriate to reduce radiation dose to as low as reasonably achievable. Dictated by Kunal Younger MD @ 06/26/2021 10:00:07 PM (Electronically Signed)
--- NOTE | 2021-06-26 16:19 | CT ---
DATE: 06/26/2021. CLINICAL HISTORY: Right posterior headache. TECHNIQUE: Standard helical CT image acquisition through the neck was performed after intravenous contrast bolus enhancement. Multiplanar reconstructed images were performed and interpreted. COMPARISON: None available. FINDINGS: The origins of the great vessels from the aortic arch are patent. The origins of the right and left vertebral arteries are patent. Moderate (approximately 50 percent) atherosclerotic luminal stenosis of the distal left common carotid artery, extending into the origin of the left ICA with resulting moderate (approximately 50 percent) luminal stenosis of the proximal ICA by NASCET criteria. Mild (less than 50 percent) atherosclerotic luminal stenosis of the proximal right ICA by NASCET criteria. The more distal cervical segments of the internal carotid arteries are patent. The cervical segments of the vertebral arteries are patent. The intracranial segments of the vertebral arteries are patent. The visualized lung apices are unremarkable. The thyroid gland is unremarkable. There are degenerative changes in the cervical spine. IMPRESSION: 1. Moderate (approximately 50 percent) atherosclerotic luminal stenoses of the distal left common carotid artery and origin of the left ICA, by NASCET criteria. 2. Mild (less than 50 percent) atherosclerotic luminal stenosis of the proximal right ICA by NASCET criteria. Please note that all CT scans at this facility use dose modulation, iterative reconstruction, and/or weight-based dosing when appropriate to reduce radiation dose to as low as reasonably achievable. Dictated by Kunal Younger MD @ 06/26/2021 10:05:12 PM (Electronically Signed)
--- NOTE | 2021-06-26 16:55 | EDM.PDOC ---
ED HPI GENERAL MEDICAL PROBLEM - General Chief Complaint: Headache Stated Complaint: DIZZY VISION BLURRY HEADACHE Time Seen by Provider: 06/26/21 13:23 - History of Present Illness INITIAL COMMENTS - FREE TEXT/NARRATIVE: CHIEF COMPLAINT(S): Headache HISTORY OF PRESENT ILLNESS: This is a 65-year-old man with a past medical history of CAD status post stent most recently in April 2021 and CABG, diabetes mellitus, hypertension who presents to the emergency department with headache. The patient states that approximately 8 hours prior to arrival the patient started to notice that his eyes and vision became spotty to where he was unable to see the print in his book. He states that he developed a headache on the right side of his head and when he stood up he became dizzy and had nausea but denied any vomiting. He states that he did have some shortness of breath. He states that this headache was not as severe as the migraines he has had in his past and did improve after he laid down. He states that upon awakening he again had a headache which was on top of his head but his vision changes improved. He rates his pain as 6 out of 10. He denies any exacerbating or relieving factors. He denies any history of brain aneurysm or intracranial hemorrhage. He states that he is not on blood thinners and denies any head injury. He denies any recent travel, recent surgery, prior history of DVT or PE. He states that he googled his symptoms and it told him he had a stroke so he came to the emergency department. REVIEW OF SYSTEMS: Constitutional: Denies fever, chills. Eyes: Denies eye pain Ears, Nose, Mouth, & Throat: Denies earache Cardiovascular: Denies chest pain Respiratory: Positive for shortness of breath Gastrointestinal: Positive for prior nausea. Denies vomiting, diarrhea, medic easier, melena, hematemesis, bilious emesis genitourinary: Denies hematuria Skin:Denies a rash MSK: Denies joint pain Neurological: Positive for headache and spotty vision. Denies loss of vision, double vision, numbness, tingling, weakness. Psychiatric: Denies depression PAST MEDICAL HISTORY: As per history of present illness and as reviewed below otherwise noncontributory. SURGICAL HISTORY: As per history of present illness and as reviewed below otherwise noncontributory. SOCIAL HISTORY: As per history of present illness and as reviewed below otherwise noncontributory. FAMILY HISTORY: As per history of present illness and as reviewed below otherwise noncontributory. EXAMINATION OF ORGAN SYSTEMS/BODY AREAS: Constitutional: Blood pressure is 119/53, heart rate 40, respiratory rate 20 with an oxygen saturation of 98% on room air. Temperature 35.1. General: Overall well-appearing man who is in no acute distress Psychiatric: Appropriate mood and affect. Eyes: No scleral icterus or conjunctival erythema pupils were equal round and reactive to light. Extraocular movements intact. Visual acuity normal and see nurses note. No vertical or horizontal nystagmus. No hyphema or hypopyon. ENMT: Moist mucous membranes. No pharyngeal erythema tongue protrudes midline. Uvula is midline. No stridor, drooling, trismus. Cardiovascular: Bradycardic and regular no gallops, murmurs, or rubs. Bilateral upper extremity pulses symmetric and intact. No peripheral edema. No JVD. Respiratory: Lungs clear to auscultation bilaterally. No wheezes, rales, or rhonchi. Gastrointestinal: Soft, non-tender, non-distended. Normoactive bowel sounds Genitourinary: No suprapubic tenderness Musculoskeletal: Normal range of motion. Skin: No lesions or abrasions. Neurological: AOx4. CN grossly intact. Stregth 5/5 in bilateral upper and lower extremity. Sensation is intact bilaterally in upper and lower extremity. Gait appears normal. Finger to nose, heel to de leon, rapid alternating movements intact. MEDICAL DECISION MAKING AND COURSE IN THE ED WITH INTERPRETATION/REVIEW OF DIAGNOSTIC STUDIES: This is a 65-year-old man with a past medical history of CAD status post stent most recently in April 2021 and CABG, diabetes mellitus, hypertension who presents to the emergency department with headache and what sounds like a presyncopal episode as the patient is currently not experiencing any other symptoms with a normal neurological examination. In addition the patient is found to be profoundly bradycardic. We did obtain an EKG which did not reveal any acute signs of ischemia. I did speak to head housekeeper Dr. Klein who did review the EKG with me and at this time it does appear that the patient is sinus bradycardia with PVC and compensatory pauses. We did place the patient on cardiac monitoring which did reveal the same rhythm and place the cardiac pads on the patient just in case we will need to provide transcutaneous pacing. The patient is currently asymptomatic with a normal blood pressure. At this time given his history will obtain a cardiac work-up. Will obtain a Covid swab in addition we will obtain CT head and CTA of the head and neck given the headache. I did discuss with him that if the CTs were normal that we could perform a lumbar puncture to evaluate for xanthochromia. At this time he elected just for CT head and CTA. After approximately 15 minutes the patient did revert to a heart rate of 70 and continued to remain normotensive. Laboratory: CBC is unremarkable. INR is normal. CMP reveals hyperglycemia at 352 otherwise unremarkable. TSH is normal. Troponin is negative. Serum alcohol is negative. Serum ketones are negative. Covid is negative. The radiological images were viewed by myself along with reading the report from the radiologist. Chest x-ray does not reveal any acute cardiopulmonary process. CT head without contrast does not reveal any acute intracranial hemorrhage or abnormality. CTA of the head and neck do not reveal any large vessel occlusion or aneurysm, dissection or other abnormality. After labs and imaging I did discuss the results with the patient. I did discuss that given the bradycardia on presentation I do believe this is the reason for his symptoms however would like to admit him for observation given his cardiac history. He was amenable to this plan. I contacted Dr. Koenig who accepted the patient for observation admission. DISPOSITION: The patient is admitted to observation in stable condition CONDITION: Fair PROCEDURES: Cardiac monitoring interpretation, pulse oximetry interpretation FINAL IMPRESSION(S)/DIAGNOSES: 1. Acute bradycardia 2. Acute presyncopal episode 3. Acute headache Liam Rudolph M.D. Critical Care Procedure Note Authorized and performed by: Liam Rudolph M.D. Critical Care Time: 45 minutes Due to a high probability of clinically significant, life threatening deterioration, the patient required my highest level of preparedness to intervene emergently and I personally spent this critical care time directly and personally managing the patient. This critical care time included obtaining a history, examining the patient, pulse oximetry; ordering and review of studies; arranging urgent treatment with development of a management plan; evaluation of a patients reponse to treatment; frequent assessment; and discussions with other providers. This critical care time was performed to assess and manage the high probability of imminent, life threatening deterioration that could result in multiorgan failure. It was exclusive of separate billable procedures and treating other patients. Please see MDM section and rest of the note for further information on patient assessment and treatment. Please see MDM section and rest of the note for further information on patient assessment and treatment. headache Pain Score (Numeric/FACES): 6 - Related Data Allergies Allergy/AdvReac Type Severity Reaction Status Date / Time erythromycin base Allergy Hallucinati Verified 07/16/20 12:58 [Erythromycin Base] ons morphine Allergy Anxiety Verified 07/16/20 12:58 pork derived (porcine) Allergy Nausea and Verified 07/16/20 12:58 Vomiting Sulfa (Sulfonamide Allergy Other Verified 07/16/20 12:58 Antibiotics) Home Meds: Home Meds Amoxicillin 875 mg PO BID 06/26/21 [History] Clopidogrel [Plavix] 75 mg PO DAILY 06/26/21 [History] Insulin Aspart (Niacinamide) [Fiasp 100 Unit/ml Flextouch] 0 unit SQ ASDIRECTED 06/26/21 [History] Insulin Degludec [Tresiba] 62 unit SQ DAILY 06/26/21 [History] Isosorbide Mononitrate [Isosorbide Mononitrate ER] 30 mg PO DAILY 06/26/21 [History] Metoprolol Tartrate 25 mg PO BID 06/26/21 [History] Nitroglycerin [Nitrostat] 0.4 mg SL ASDIRECTED PRN 06/26/21 [History] atorvaSTATin [Lipitor] 40 mg PO BEDTIME 06/26/21 [History] lisinopriL [Lisinopril] 10 mg PO DAILY 06/26/21 [History] Past Medical History HEENT History: Reports: Impaired Vision Other HEENT History: wears glasses, has upper dentures and lower partial plate Cardiovascular History: Reports: Bypass, CAD, High Cholesterol, Hypertension, [place] Other Cardiovascular History: left ventricular diastolic dysfunction Respiratory History: Reports: COPD, Pneumonia, Recurrent, Sleep Apnea Other Respiratory History: uses CPAP Gastrointestinal History: Reports: Colon Polyp, Fatty Liver, GERD, Pancreatitis Genitourinary History: Reports: Renal Calculus Musculoskeletal History: Reports: Arthritis, Back Pain, Chronic, Fracture, Osteoarthritis Other Musculoskeletal History: hx of fx ribs, fingers and back Neurological History: Reports: Concussion, Head Trauma, Migraines, Seizure Other Neuro History: hx of seizures as a child, none for 40 years, migraines as a child Psychiatric History: Reports: None Endocrine/Metabolic History: Reports: Diabetes, Type II, IDDM, Obesity/BMI 30+ Hematologic History: Reports: Blood Transfusion(s), Iron Deficiency Immunologic History: Reports: Other (See Below) Other Immunologic History: 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, 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 Oncologic (Cancer) History: Reports: None Dermatologic History: Reports: None, Other (See Below) - Infectious Disease History Infectious Disease History: Reports: MRSA Other Infectious Disease History: left leg 11 years ago - Past Surgical History Head Surgeries/Procedures: Reports: None HEENT Surgical History: Reports: Tonsillectomy Cardiovascular Surgical History: Reports: Coronary Artery Bypass, Coronary A rtery Stent Other Cardiovascular Surgeries/Procedures: January 2015 triple bypass Respiratory Surgical History: Reports: None GI Surgical History: Reports: Appendectomy, Colonoscopy, EGD, Hernia, Inguinal Other GI Surgeries/Procedures: ventral hernia repair x3 Male Surgical History: Reports: Lithotripsy ([facility]) Other Male Surgeries/Procedures: able to pass several kidney stones Endocrine Surgical History: Reports: None Musculoskeletal Surgical History: Reports: Arthroscopic Knee, Shoulder Surgery Other Musculoskeletal Surgeries/Procedures:: surgery for dislocated rt shoulder Oncologic Surgical History: Reports: None Dermatological Surgical History: Reports: None Social & Family History - Family History Family Medical History: No Pertinent Family History - Tobacco Use Packs/Tins Daily: 1 - Caffeine Use Caffeine Use: Reports: None - Recreational Drug Use Recreational Drug Use: No ED ROS GENERAL - Review of Systems Review Of Systems: See Below ED EXAM, GENERAL - Physical Exam Exam: See Below Course - Vital Signs Last Recorded V/S: Last Vital Signs Temp 35.1 C L 06/26/21 13:29 Pulse 64 06/26/21 16:32 Resp 20 06/26/21 13:29 BP 132/74 06/26/21 16:32 Pulse Ox 95 06/26/21 16:32 - Orders/Labs/Meds Orders: Active Orders 24 hr Category Date Time Status Admission Status [Patient Status] [ADT] Stat ADT 06/26/21 17:00 Active Blood Glucose Check, Bedside [RC] ONETIME Care 06/26/21 13:20 Active Cardiac Monitoring [RC] . DIRECTED Care 06/26/21 13:30 Active Pulse Oximetry [RC] ASDIRECTED Care 06/26/21 13:30 Active Heart Healthy Diet [DIET] Diet 06/27/21 Breakfast Active Echo Comp wo Cont [US] Routine Exams 06/26/21 17:05 Ordered CBC WITH AUTO DIFF [HEME] AM Lab 06/27/21 05:11 Ordered CBC WITH AUTO DIFF [HEME] AM Lab 06/28/21 05:11 Ordered CMP [COMPREHENSIVE METABOLIC PN,CMP] [CHEM] AM Lab 06/27/21 05:11 Ordered CMP [COMPREHENSIVE METABOLIC PN,CMP] [CHEM] AM Lab 06/28/21 05:11 Ordered TROPONIN I [CHEM] Q4H Lab 06/26/21 17:11 Received TROPONIN I [CHEM] Q4H Lab 06/26/21 21:04 Ordered TROPONIN I [CHEM] Q4H Lab 06/27/21 01:04 Ordered Enoxaparin [Lovenox] Med 06/26/21 17:45 Active 40 mg SUBCUT Q24H Metoprolol Tartrate [Lopressor] Med 06/26/21 17:45 Active 25 mg PO BID Pantoprazole [ProTONIX] Med 06/26/21 17:45 Active 40 mg PO DAILY atorvaSTATin [Lipitor] Med 06/26/21 21:00 Active 40 mg PO BEDTIME Code Status [Resuscitation Status] Routine Resus Stat 06/26/21 17:40 Ordered Medication Orders Atorvastatin Calcium (Atorvastatin 40 Mg Tab) 40 mg PO BEDTIME TIERA Enoxaparin Sodium (Enoxaparin 40 Mg/0.4 Ml Syringe) 40 mg SUBCUT Q24H TIERA Metoprolol Tartrate (Metoprolol Tartrate 25 Mg Tab) 25 mg PO BID TIERA Pantoprazole Sodium (Pantoprazole 40 Mg Tab.Cr) 40 mg PO DAILY TIERA Labs: Laboratory Tests 06/26/21 06/26/21 06/26/21 Range/Units 13:33 13:49 13:49 WBC 9.95 (4.0-11.0) K/uL RBC 5.29 (4.50-5.90) M/uL Hgb 16.3 (13.0-17.0) g/dL Hct 45.7 (38.0-50.0) % MCV 86.4 (80.0-98.0) fL MCH 30.8 (27.0-32.0) pg MCHC 35.7 (31.0-37.0) g/dL RDW Std Deviation 42.4 (28.0-62.0) fl RDW Coeff of [place] 14 (11.0-15.0) % Plt Count 268 (150-400) K/uL MPV 8.90 (7.40-12.00) fL Neut % (Auto) 61.5 (48.0-80.0) % Lymph % (Auto) 26.9 (16.0-40.0) % [place] % (Auto) 6.9 (0.0-15.0) % Eos % (Auto) 4.2 (0.0-7.0) % Baso % (Auto) 0.5 (0.0-1.5) % Neut # (Auto) 6.1 H (1.4-5.7) K/uL Lymph # (Auto) 2.7 H (0.6-2.4) K/uL [place] # (Auto) 0.7 (0.0-0.8) K/uL Eos # (Auto) 0.4 (0.0-0.7) K/uL Baso # (Auto) 0.1 (0.0-0.1) K/uL Nucleated RBC % 0.0 /100WBC Nucleated RBCs # 0 K/uL INR 1.00 Sodium (136-148) mmol/L Potassium (3.5-5.1) mmol/L Chloride (98-107) mmol/L Carbon Dioxide (21.0-32.0) mmol/L BUN (7.0-18.0) mg/dL Creatinine (0.8-1.3) mg/dL Est Cr Clr Drug Dosing mL/min Estimated GFR (MDRD) ml/min Glucose (74-106) mg/dL POC Glucose 371 H (70-99) mg/dL Calcium (8.5-10.1) mg/dL Magnesium (1.8-2.4) mg/dL Total Bilirubin (0.2-1.0) mg/dL AST (15-37) IU/L ALT (14-63) IU/L Alkaline Phosphatase (46-116) U/L Troponin I (0.000-0.056) ng/mL Total Protein (6.4-8.2) g/dL Albumin (3.4-5.0) g/dL Globulin (2.6-4.0) g/dL Albumin/Globulin Ratio (0.9-1.6) TSH, Ultra Sensitive (0.36-3.74) uIU/mL Ethyl Alcohol mg/dL Ketones (NEG) SARS-CoV-2 RNA (GERALD) (NEGATIVE) 06/26/21 06/26/21 06/26/21 Range/Units 13:49 13:49 13:59 WBC (4.0-11.0) K/uL RBC (4.50-5.90) M/uL Hgb (13.0-17.0) g/dL Hct (38.0-50.0) % MCV (80.0-98.0) fL MCH (27.0-32.0) pg MCHC (31.0-37.0) g/dL RDW Std Deviation (28.0-62.0) fl RDW Coeff of [place] (11.0-15.0) % Plt Count (150-400) K/uL MPV (7.40-12.00) fL Neut % (Auto) (48.0-80.0) % Lymph % (Auto) (16.0-40.0) % [place] % (Auto) (0.0-15.0) % Eos % (Auto) (0.0-7.0) % Baso % (Auto) (0.0-1.5) % Neut # (Auto) (1.4-5.7) K/uL Lymph # (Auto) (0.6-2.4) K/uL [place] # (Auto) (0.0-0.8) K/uL Eos # (Auto) (0.0-0.7) K/uL Baso # (Auto) (0.0-0.1) K/uL Nucleated RBC % /100WBC Nucleated RBCs # K/uL INR Sodium 136 (136-148) mmol/L Potassium 4.8 (3.5-5.1) mmol/L Chloride 99 (98-107) mmol/L Carbon Dioxide 30.6 (21.0-32.0) mmol/L BUN 22 H (7.0-18.0) mg/dL Creatinine 1.1 (0.8-1.3) mg/dL Est Cr Clr Drug Dosing 64.77 mL/min Estimated GFR (MDRD) > 60.0 ml/min Glucose 352 H (74-106) mg/dL POC Glucose (70-99) mg/dL Calcium 9.2 (8.5-10.1) mg/dL Magnesium 1.8 (1.8-2.4) mg/dL Total Bilirubin 0.4 (0.2-1.0) mg/dL AST 18 (15-37) IU/L ALT 28 (14-63) IU/L Alkaline Phosphatase 92 (46-116) U/L Troponin I < 0.050 (0.000-0.056) ng/mL Total Protein 7.2 (6.4-8.2) g/dL Albumin 3.2 L (3.4-5.0) g/dL Globulin 4.0 (2.6-4.0) g/dL Albumin/Globulin Ratio 0.8 L (0.9-1.6) TSH, Ultra Sensitive 2.77 (0.36-3.74) uIU/mL Ethyl Alcohol < 3.0 mg/dL Ketones NEGATIVE (NEG) SARS-CoV-2 RNA (GERALD) NEGATIVE (NEGATIVE) Meds: Medications Generic Name Dose Route Start Last Admin Trade Name Freq PRN Reason Stop Dose Admin Atorvastatin Calcium 40 mg 06/26/21 21:00 Atorvastatin 40 Mg Tab PO BEDTIME TIERA Enoxaparin Sodium 40 mg 06/26/21 17:45 Enoxaparin 40 Mg/0.4 Ml Syringe SUBCUT Q24H TIERA Metoprolol Tartrate 25 mg 06/26/21 17:45 Metoprolol Tartrate 25 Mg Tab PO BID TIERA Pantoprazole Sodium 40 mg 06/26/21 17:45 Pantoprazole 40 Mg Tab.Cr PO DAILY TIERA Discontinued Medications Generic Name Dose Route Start Last Admin Trade Name Freq PRN Reason Stop Dose Admin Acetaminophen 1,000 mg 06/26/21 14:06 06/26/21 14:10 Acetaminophen 500 Mg Tab PO 06/26/21 14:07 1,000 mg ONETIME ONE Administration Clopidogrel Bisulfate 75 mg 06/26/21 17:45 Clopidogrel 75 Mg Tab PO DAILY TIERA Iopamidol 100 ml 06/26/21 15:50 06/26/21 15:51 Iopamidol 755 Mg/Ml 500 Ml Multipack Bottle IVPUSH 06/26/21 15:51 100 ml ONETIME STA Administration Departure - Departure Time of Disposition: 15:00 Disposition: Admitted As Inpatient 66 Condition: Fair Clinical Impression: Bradycardia - Discharge Information Referrals: PCP,None [Primary Care Provider] - Forms: ED Department Discharge Sepsis Event Note (ED) - Evaluation Sepsis Screening Result: No Definite Risk - Focused Exam Vital Signs: Vital Signs Temp Pulse Resp BP Pulse Ox 06/26/21 16:32 64 132/74 95 06/26/21 16:02 68 122/77 96 06/26/21 15:05 69 120/77 96 06/26/21 14:14 51 L 119/70 96 06/26/21 13:29 35.1 C L 40 L 20 119/53 L 98 - My Orders Last 24 Hours: My Active Orders 06/26/21 13:20 Blood Glucose Check, Bedside [RC] ONETIME 06/26/21 13:30 Cardiac Monitoring [RC] . DIRECTED Pulse Oximetry [RC] ASDIRECTED - Assessment/Plan Last 24 Hours: My Active Orders 06/26/21 13:20 Blood Glucose Check, Bedside [RC] ONETIME 06/26/21 13:30 Cardiac Monitoring [RC] . DIRECTED Pulse Oximetry [RC] ASDIRECTED
--- NOTE | 2021-06-26 16:59 | PCM.EKG ---
#1 Interpretation EKG Date: 06/26/21 Time: 13:33 Rhythm: NSR Rate (Beats/Min): 43 (approximately) Basehor: LAD-Left Basehor Deviation P-Wave: Present QRS: Other (Inferior and anterolateral Q waves with occasional PVC) ST-T: Normal QT: Normal Comparison: Change From Previous EKG (05/04/21) EKG Interpretation Comments: Sinus Bradycardia with occastional PVC and pauses #2 Interpretation EKG Date: 06/26/21 Time: 13:40 Rhythm: NSR Rate (Beats/Min): 43 (approximately) Basehor: LAD-Left Basehor Deviation P-Wave: Present QRS: Normal (Q waves inferior and anterolateal with occasional PVC) ST-T: Normal QT: Normal Comparison: No Change (today) EKG Interpretation Comments: Sinus Bradycardia with occasional PVC and pauses #3 Interpretation EKG Date: 06/26/21 Time: 14:28 Rhythm: NSR Rate (Beats/Min): 71 Basehor: LAD-Left Basehor Deviation P-Wave: Present QRS: Normal (Q waves inferior and anterolateral) ST-T: Normal QT: Normal Comparison: Change From Previous EKG (Today) EKG Interpretation Comments: Sinus Rhythm
[2021-06-26] MEDS ORDERED: Metoprolol Tartrate 25 MG Tab PO SCH (17:45)
[2021-06-26] MEDS ORDERED: Clopidogrel 75 MG Tab PO SCH (17:45)
[2021-06-26] MEDS ORDERED: Pantoprazole 40 MG Tab.CR PO SCH (17:45)
[2021-06-26] MEDS ORDERED: Non-Formulary Medication 1 Each (Insulin Degludec [Tresiba] 100 UNIT/ML Vial) SQ SCH (17:45)
[2021-06-26] MEDS ORDERED: Enoxaparin 40 MG/0.4 ML Syringe SUBCUT SCH (17:45)
[2021-06-26] MEDS ORDERED: Non-Formulary Medication 1 Each (Insulin Aspart (Niacinamide) [Fiasp 100 Unit/Ml Flextouch SQ SCH (17:45)
[2021-06-26 18:34] VITALS: BP 136/75; PULSE 63
--- NOTE | 2021-06-26 18:56 | PCM.HP.2 ---
<Bam Rothman - Last Filed: 06/26/21 19:00> H&P History of Present Illness - General Date of Service: 06/26/21 Admit Problem/Dx: Admission Diagnosis/Problem Admission Diagnosis/Problem Headache - History of Present Illness Initial Comments - Free Text/Narative: The patient is a 65-year-old male, on day 1 of service, with a significant past medical history of diabetes mellitus, pancreatitis, hypertension, migraine headaches, hyperlipidemia, COPD, coronary artery bypass graft in 2013, 2 stents placed in 2013, and 2 stents placed in April 2021, was admitted to the medical floor due to headache and blurry vision. His headache started this morning which is 7/10 in intensity, is located over the right parietal lobe and top of the head, nonradiating, and is associated with blurry vision with occasional flashing of lights in both eyes. The patient experienced the symptoms at 5 AM this morning and it lasted for half an hour. He denies any tingling, numbness, weakness, speech alterations, swallowing difficulty, nausea, vomiting, chest pain, shortness of breath, or palpitations. With respect to social history the patient has a 50-year history of smoking cigarettes, used to smoke a full pack and now is down to 7 cigarettes a day. He denies alcohol consumption and recreational drug use. With respect to family history both of his parents have hypertension. On CBC, the patient's white blood cell count is 9.95, hemoglobin 16.3, hematocrit is 45.7, and platelet count is 268 On CMP, sodium is 136, potassium is 4.8, chloride is 99, carbon dioxide is 30.6, BUN is 22, creatinine is 1.1 CT of head without contrast shows no abnormalities CTA of the head and neck reveals 50-60 stenosis in the carotid arteries EKG shows sinus bradycardia with occasional PVCs In the emergency department, the patient received acetaminophen 100 mg per oral route 1 time, Iopamidol 100 mL IV push 1 time, high blood glucose checks, was placed on a property assessment monitor/telemetry, and was seen by the adult medicine attending and resident. headache Pain Score (Numeric/FACES): 6 - Related Data Allergies/Adverse Reactions: Allergies Allergy/AdvReac Type Severity Reaction Status Date / Time erythromycin base Allergy Hallucinati Verified 07/16/20 12:58 [Erythromycin Base] ons morphine Allergy Anxiety Verified 07/16/20 12:58 pork derived (porcine) Allergy Nausea and Verified 07/16/20 12:58 Vomiting Sulfa (Sulfonamide Allergy Other Verified 07/16/20 12:58 Antibiotics) Home Medications: Home Meds Amoxicillin 875 mg PO BID 06/26/21 [History] Clopidogrel [Plavix] 75 mg PO DAILY 06/26/21 [History] Insulin Aspart (Niacinamide) [Fiasp 100 Unit/ml Flextouch] 0 unit SQ ASDIRECTED 06/26/21 [History] Insulin Degludec [Tresiba] 62 unit SQ DAILY 06/26/21 [History] Isosorbide Mononitrate [Isosorbide Mononitrate ER] 30 mg PO DAILY 06/26/21 [History] Metoprolol Tartrate 25 mg PO BID 06/26/21 [History] Nitroglycerin [Nitrostat] 0.4 mg SL ASDIRECTED PRN 06/26/21 [History] atorvaSTATin [Lipitor] 40 mg PO BEDTIME 06/26/21 [History] lisinopriL [Lisinopril] 10 mg PO DAILY 06/26/21 [History] Past Medical History HEENT History: Reports: Impaired Vision Other HEENT History: wears glasses, has upper dentures and lower partial plate Cardiovascular History: Reports: Bypass, CAD, High Cholesterol, Hypertension, [place] Other Cardiovascular History: left ventricular diastolic dysfunction Respiratory History: Reports: COPD, Pneumonia, Recurrent, Sleep Apnea Other Respiratory History: uses CPAP Gastrointestinal History: Reports: Colon Polyp, Fatty Liver, GERD, Pancreatitis Genitourinary History: Reports: Renal Calculus Musculoskeletal History: Reports: Arthritis, Back Pain, Chronic, Fracture, Osteoarthritis Other Musculoskeletal History: hx of fx ribs, fingers and back Neurological History: Reports: Concussion, Head Trauma, Migraines, Seizure Other Neuro History: hx of seizures as a child, none for 40 years, migraines as a child Psychiatric History: Reports: None Endocrine/Metabolic History: Reports: Diabetes, Type II, IDDM, Obesity/BMI 30+ Hematologic History: Reports: Blood Transfusion(s), Iron Deficiency Immunologic History: Reports: Other (See Below) Other Immunologic History: 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, 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 Oncologic (Cancer) History: Reports: None Dermatologic History: Reports: None, Other (See Below) - Infectious Disease History Infectious Disease History: Reports: MRSA Other Infectious Disease History: left leg 11 years ago - Past Surgical History Head Surgeries/Procedures: Reports: None HEENT Surgical History: Reports: Tonsillectomy Cardiovascular Surgical History: Reports: Coronary Artery Bypass, Coronary Artery Stent Other Cardiovascular Surgeries/Procedures: January 2015 triple bypass Respiratory Surgical History: Reports: None GI Surgical History: Reports: Appendectomy, Colonoscopy, EGD, Hernia, Inguinal Other GI Surgeries/Procedures: ventral hernia repair x3 Male Surgical History: Reports: Lithotripsy ([facility]) Other Male Surgeries/Procedures: able to pass several kidney stones Endocrine Surgical History: Reports: None Musculoskeletal Surgical History: Reports: Arthroscopic Knee, Shoulder Surgery Other Musculoskeletal Surgeries/Procedures:: surgery for dislocated rt shoulder Oncologic Surgical History: Reports: None Dermatological Surgical History: Reports: None Social & Family History - Family History Family Medical History: No Pertinent Family History - Tobacco Use Packs/Tins Daily: 1 - Caffeine Use Caffeine Use: Reports: None - Recreational Drug Use Recreational Drug Use: No H&P Review of Systems - Review of Systems: Review Of Systems: See Below General: Denies: Fever, Chills, Weakness HEENT: Reports: Headaches, Other (Blurry vision) Pulmonary: Denies: Shortness of Breath, Cough Cardiovascular: Denies: Chest Pain, Palpitations Gastrointestinal: Denies: Abdominal Pain, Constipation, Diarrhea Genitourinary: Denies: Dysuria Musculoskeletal: Denies: Neck Pain, Arm Pain Neurological: Denies: Syncope, Tingling Exam - Exam Exam: See Below - Vital Signs Vital Signs: Last Vital Signs Temp 95.1 F L 06/26/21 13:29 Pulse 63 06/26/21 18:34 Resp 20 06/26/21 13:29 BP 136/75 06/26/21 18:34 Pulse Ox 98 06/26/21 18:34 Weight: 104.326 kg - Exam General: Alert, Oriented, Cooperative HEENT: Mucosa Moist & [place] Neck: Trachea Midline Lungs: Clear to Auscultation, Normal Respiratory Effort Cardiovascular: Bradycardia, Other (Vertical scar on chest from CABG surgery) GI/Abdominal Exam: Normal Bowel Sounds, Soft, Non-Tender Extremities: No Pedal Edema - Patient Data Lab Results Last 24 hrs: Laboratory Results - last 24 hr 06/26/21 06/26/21 06/26/21 Range/Units 13:33 13:49 13:49 WBC 9.95 (4.0-11.0) K/uL RBC 5.29 (4.50-5.90) M/uL Hgb 16.3 (13.0-17.0) g/dL Hct 45.7 (38.0-50.0) % MCV 86.4 (80.0-98.0) fL MCH 30.8 (27.0-32.0) pg MCHC 35.7 (31.0-37.0) g/dL RDW Std Deviation 42.4 (28.0-62.0) fl RDW Coeff of [place] 14 (11.0-15.0) % Plt Count 268 (150-400) K/uL MPV 8.90 (7.40-12.00) fL Neut % (Auto) 61.5 (48.0-80.0) % Lymph % (Auto) 26.9 (16.0-40.0) % [place] % (Auto) 6.9 (0.0-15.0) % Eos % (Auto) 4.2 (0.0-7.0) % Baso % (Auto) 0.5 (0.0-1.5) % Neut # (Auto) 6.1 H (1.4-5.7) K/uL Lymph # (Auto) 2.7 H (0.6-2.4) K/uL [place] # (Auto) 0.7 (0.0-0.8) K/uL Eos # (Auto) 0.4 (0.0-0.7) K/uL Baso # (Auto) 0.1 (0.0-0.1) K/uL Nucleated RBC % 0.0 /100WBC Nucleated RBCs # 0 K/uL INR 1.00 Sodium (136-148) mmol/L Potassium (3.5-5.1) mmol/L Chloride (98-107) mmol/L Carbon Dioxide (21.0-32.0) mmol/L BUN (7.0-18.0) mg/dL Creatinine (0.8-1.3) mg/dL Est Cr Clr Drug Dosing mL/min Estimated GFR (MDRD) ml/min Glucose (74-106) mg/dL POC Glucose 371 H (70-99) mg/dL Calcium (8.5-10.1) mg/dL Magnesium (1.8-2.4) mg/dL Total Bilirubin (0.2-1.0) mg/dL AST (15-37) IU/L ALT (14-63) IU/L Alkaline Phosphatase (46-116) U/L Troponin I (0.000-0.056) ng/mL Total Protein (6.4-8.2) g/dL Albumin (3.4-5.0) g/dL Globulin (2.6-4.0) g/dL Albumin/Globulin Ratio (0.9-1.6) TSH, Ultra Sensitive (0.36-3.74) uIU/mL Ethyl Alcohol mg/dL Ketones (NEG) SARS-CoV-2 RNA (GERALD) (NEGATIVE) 06/26/21 06/26/21 06/26/21 Range/Units 13:49 13:49 13:59 WBC (4.0-11.0) K/uL RBC (4.50-5.90) M/uL Hgb (13.0-17.0) g/dL Hct (38.0-50.0) % MCV (80.0-98.0) fL MCH (27.0-32.0) pg MCHC (31.0-37.0) g/dL RDW Std Deviation (28.0-62.0) fl RDW Coeff of [place] (11.0-15.0) % Plt Count (150-400) K/uL MPV (7.40-12.00) fL Neut % (Auto) (48.0-80.0) % Lymph % (Auto) (16.0-40.0) % [place] % (Auto) (0.0-15.0) % Eos % (Auto) (0.0-7.0) % Baso % (Auto) (0.0-1.5) % Neut # (Auto) (1.4-5.7) K/uL Lymph # (Auto) (0.6-2.4) K/uL [place] # (Auto) (0.0-0.8) K/uL Eos # (Auto) (0.0-0.7) K/uL Baso # (Auto) (0.0-0.1) K/uL Nucleated RBC % /100WBC Nucleated RBCs # K/uL INR Sodium 136 (136-148) mmol/L Potassium 4.8 (3.5-5.1) mmol/L Chloride 99 (98-107) mmol/L Carbon Dioxide 30.6 (21.0-32.0) mmol/L BUN 22 H (7.0-18.0) mg/dL Creatinine 1.1 (0.8-1.3) mg/dL Est Cr Clr Drug Dosing 64.77 mL/min Estimated GFR (MDRD) > 60.0 ml/min Glucose 352 H (74-106) mg/dL POC Glucose (70-99) mg/dL Calcium 9.2 (8.5-10.1) mg/dL Magnesium 1.8 (1.8-2.4) mg/dL Total Bilirubin 0.4 (0.2-1.0) mg/dL AST 18 (15-37) IU/L ALT 28 (14-63) IU/L Alkaline Phosphatase 92 (46-116) U/L Troponin I < 0.050 (0.000-0.056) ng/mL Total Protein 7.2 (6.4-8.2) g/dL Albumin 3.2 L (3.4-5.0) g/dL Globulin 4.0 (2.6-4.0) g/dL Albumin/Globulin Ratio 0.8 L (0.9-1.6) TSH, Ultra Sensitive 2.77 (0.36-3.74) uIU/mL Ethyl Alcohol < 3.0 mg/dL Ketones NEGATIVE (NEG) SARS-CoV-2 RNA (GERALD) NEGATIVE (NEGATIVE) 06/26/21 Range/Units 17:11 WBC (4.0-11.0) K/uL RBC (4.50-5.90) M/uL Hgb (13.0-17.0) g/dL Hct (38.0-50.0) % MCV (80.0-98.0) fL MCH (27.0-32.0) pg MCHC (31.0-37.0) g/dL RDW Std Deviation (28.0-62.0) fl RDW Coeff of [place] (11.0-15.0) % Plt Count (150-400) K/uL MPV (7.40-12.00) fL Neut % (Auto) (48.0-80.0) % Lymph % (Auto) (16.0-40.0) % [place] % (Auto) (0.0-15.0) % Eos % (Auto) (0.0-7.0) % Baso % (Auto) (0.0-1.5) % Neut # (Auto) (1.4-5.7) K/uL Lymph # (Auto) (0.6-2.4) K/uL [place] # (Auto) (0.0-0.8) K/uL Eos # (Auto) (0.0-0.7) K/uL Baso # (Auto) (0.0-0.1) K/uL Nucleated RBC % /100WBC Nucleated RBCs # K/uL INR Sodium (136-148) mmol/L Potassium (3.5-5.1) mmol/L Chloride (98-107) mmol/L Carbon Dioxide (21.0-32.0) mmol/L BUN (7.0-18.0) mg/dL Creatinine (0.8-1.3) mg/dL Est Cr Clr Drug Dosing mL/min Estimated GFR (MDRD) ml/min Glucose (74-106) mg/dL POC Glucose (70-99) mg/dL Calcium (8.5-10.1) mg/dL Magnesium (1.8-2.4) mg/dL Total Bilirubin (0.2-1.0) mg/dL AST (15-37) IU/L ALT (14-63) IU/L Alkaline Phosphatase (46-116) U/L Troponin I < 0.050 (0.000-0.056) ng/mL Total Protein (6.4-8.2) g/dL Albumin (3.4-5.0) g/dL Globulin (2.6-4.0) g/dL Albumin/Globulin Ratio (0.9-1.6) TSH, Ultra Sensitive (0.36-3.74) uIU/mL Ethyl Alcohol mg/dL Ketones (NEG) SARS-CoV-2 RNA (GERALD) (NEGATIVE) Result Diagrams: 06/26/21 13:49 06/26/21 13:49 Sepsis Event Note - Evaluation Sepsis Screening Result: No Definite Risk - Focused Exam Vital Signs: Vital Signs Temp Pulse Resp BP Pulse Ox 06/26/21 18:34 63 136/75 98 06/26/21 16:32 64 132/74 95 06/26/21 16:02 68 122/77 96 06/26/21 15:05 69 120/77 96 06/26/21 14:14 51 L 119/70 96 06/26/21 13:29 95.1 F L 40 L 20 119/53 L 98 - Problem List (1) Headache SNOMED Code(s): 05123649 ICD Code: R51.9 - HEADACHE, UNSPECIFIED Status: Acute (2) Blurry vision, bilateral SNOMED Code(s): 704882688 ICD Code: H53.8 - OTHER VISUAL DISTURBANCES Status: Acute (3) Carotid artery stenosis Status: Acute (4) Bradycardia SNOMED Code(s): 00760550 ICD Code: R00.1 - BRADYCARDIA, UNSPECIFIED Status: Acute (5) Abnormal EKG SNOMED Code(s): 289928852 ICD Code: R94.31 - ABNORMAL ELECTROCARDIOGRAM [ECG] [EKG] Status: Acute Priority: High Problem List Initiated/Reviewed/Updated: Yes Orders Last 24hrs: Active Orders 24 hr Category Date Time Status Admission Status [Patient Status] [ADT] Stat ADT 06/26/21 17:00 Active Blood Glucose Check, Bedside [RC] ONETIME Care 06/26/21 13:20 Active Cardiac Monitoring [RC] . DIRECTED Care 06/26/21 13:30 Active Pulse Oximetry [RC] ASDIRECTED Care 06/26/21 13:30 Active Heart Healthy Diet [DIET] Diet 06/27/21 Breakfast Active Echo Comp wo Cont [US] Routine Exams 06/26/21 17:05 Ordered CBC WITH AUTO DIFF [HEME] AM Lab 06/27/21 05:11 Ordered CBC WITH AUTO DIFF [HEME] AM Lab 06/28/21 05:11 Ordered CMP [COMPREHENSIVE METABOLIC PN,CMP] [CHEM] AM Lab 06/27/21 05:11 Ordered CMP [COMPREHENSIVE METABOLIC PN,CMP] [CHEM] AM Lab 06/28/21 05:11 Ordered TROPONIN I [CHEM] Q4H Lab 06/26/21 21:04 Ordered TROPONIN I [CHEM] Q4H Lab 06/27/21 01:04 Ordered Enoxaparin [Lovenox] Med 06/26/21 17:45 Active 40 mg SUBCUT Q24H Insulin Aspart (Niacinamide) [Fiasp 100 Unit/ml Med 06/26/21 17:45 Active Flextouch] 60 unit SQ ASDIRECTED Insulin Degludec [Tresiba] Med 06/26/21 17:45 Active 62 unit SQ DAILY Metoprolol Tartrate [Lopressor] Med 06/26/21 17:45 Active 25 mg PO BID Pantoprazole [ProTONIX] Med 06/26/21 17:45 Active 40 mg PO DAILY atorvaSTATin [Lipitor] Med 06/26/21 21:00 Active 40 mg PO BEDTIME Code Status [Resuscitation Status] Routine Resus Stat 06/26/21 17:40 Ordered Medication Orders Atorvastatin Calcium (Atorvastatin 40 Mg Tab) 40 mg PO BEDTIME [facility] Enoxaparin Sodium (Enoxaparin 40 Mg/0.4 Ml Syringe) 40 mg SUBCUT Q24H [facility] Last Admin: 06/26/21 18:28 Dose: 40 mg Documented by: OMI Metoprolol Tartrate (Metoprolol Tartrate 25 Mg Tab) 25 mg PO BID [facility] Last Admin: 06/26/21 18:29 Dose: Not Given Documented by: OMI Non-Formulary Medication (Insulin Degludec [Tresiba]) 62 unit SQ DAILY [facility] Non-Formulary Medication (Insulin Aspart (Niacinamide) [Fiasp 100 Unit/Ml Flextouch]) 60 unit SQ ASDIRECTED [facility] Pantoprazole Sodium (Pantoprazole 40 Mg Tab.Cr) 40 mg PO DAILY [facility] Last Admin: 06/26/21 18:28 Dose: 40 mg Documented by: OMI Assessment/Plan Comment:: Admit the patient to the medical floor for observation, vitals per unit routine, activity up ad lawrence., heart healthy diet, Lovenox subcutaneously for DVT prophylaxis, pantoprazole for GI prophylaxis 1. Bradycardia -The patient has been placed on telemetry and will continue to monitor this -An echocardiogram has been ordered for the morning -Duplicating Machine Operator Dr. Herrera was consulted who suggested we continue with metoprolol treatment because this patient may have bigemini -We have ordered tropes x3 2. Diabetes mellitus -We will continue with the patient's insulin aspart -We will continue with the patient's Tresiba 3. Hyperlipemia -Continue Atorvastatin <Otoniel Koenig - Last Filed: 06/28/21 17:30> H&P History of Present Illness - General Admit Problem/Dx: Admission Diagnosis/Problem Admission Diagnosis/Problem Headache Exam - Vital Signs Vital Signs: Last Vital Signs Temp 35.1 C L 06/26/21 13:29 Pulse 63 06/26/21 18:34 Resp 20 06/26/21 13:29 BP 136/75 06/26/21 18:34 Pulse Ox 98 06/26/21 18:34 - Patient Data Result Diagrams: 06/26/21 13:49 06/26/21 13:49 - Free Text/Narrative Note: I have seen and examined the patient. I have discussed findings and treatment plan with the resident. I agree with the assessment and plan outlined in the following note. After admission to the floor I was later told by nursing that the patient had absconded with out telling anyone.
[2021-06-26] MEDS ORDERED: 50% Dextrose in Water 50 ML Syringe IVPUSH PRN (19:37)
[2021-06-26] MEDS ORDERED: Glucagon,Human Recombinant 1 MG Vial IM PRN (19:37)
[2021-06-26] MEDS ORDERED: INSULIN DEGLUDEC 50 UNIT SQ SCH (21:00)
[2021-06-26] MEDS ORDERED: atorvaSTATin 40 MG Tab PO SCH (21:00)
[2021-06-27] MEDS ORDERED: Insulin Aspart 100 Units/ML 3 ML Pen SUBCUT SCH (07:30)
== END 2021-06-26 21:00 | disposition left against medical advice (07) ==
LOC: MW.ED 13:16 → MW.MS 17:00
PROVIDERS: ADMIT Internal Medicine; ATTEND Internal Medicine
DX: G43.909 Migraine, unspecified, not intractable, without status migrainosus (principal); E11.9 Type 2 diabetes mellitus without complications; I10 Essential (primary) hypertension; K85.90 Acute pancreatitis without necrosis or infection, unspecified; J44.9 Chronic obstructive pulmonary disease, unspecified; E78.00 Pure hypercholesterolemia, unspecified; I25.2 Old myocardial infarction; R00.1 Bradycardia, unspecified; E66.9 Obesity, unspecified; Z20.822 Contact with and (suspected) exposure to COVID-19; Z98.890 Other specified postprocedural states; Z95.5 Presence of coronary angioplasty implant and graft; Z88.2 Allergy status to sulfonamides; Z88.8 Allergy status to other drugs, medicaments and biological substances; Z88.5 Allergy status to narcotic agent; Z91.018 Allergy to other foods; Z79.899 Other long term (current) drug therapy; Z68.35 Body mass index [BMI] 35.0-35.9, adult
CPT/HCPCS: 36415; 70450; 70496; 70498; 71045; 80053; 80307; 82009; 82947; 83735; 84443; 84484; 85025; 85610; 93005; 99285; A9270; J1650; Q9967; U0002

== ENCOUNTER 2021-10-03 12:16 | Emergency (ER) | payer MEDICARE, OTHER ==
[2021-10-03] MEDS ORDERED: Sodium Chloride 0.9% 2.5 ML Syringe FLUSH PRN (12:24)
[2021-10-03] MEDS ORDERED: Sodium Chloride 0.9% 10 ML Syringe FLUSH PRN (12:24)
[2021-10-03] MEDS ORDERED: Sodium Chloride 0.9% 1,000 ML IV ONE (12:24)
[2021-10-03 14:45] LABS: BLOOD UREA NITROGEN,BUN 15 mg/dL (7.0-18.0); CARBON DIOXIDE,CO2 24.2 mmol/L (21.0-32.0); CHLORIDE,CL 101 mmol/L (98-107); GLUCOSE RANDOM 187 mg/dL (74-106); SODIUM,NA 134 mmol/L (136-148)
[2021-10-03] MEDS ORDERED: Amiodarone 150 MG in Dextrose 5% in Water 100 ML IV ONE ×2 (16:25)
[2021-10-03] MEDS ORDERED: Amiodarone In Dextrose,Iso-Osm 150 MG in Premix Bag 1 BAG IV ONE ×2 (16:45)
[2021-10-03] MEDS ORDERED: Magnesium Sulfate/Water 2 GM in Premix Bag 1 BAG IV ONE (17:23)
[2021-10-03 17:40] VITALS: BP 135/86; PULSE 82
== END 2021-10-03 17:30 ==
LOC: MW.ED 12:16
DX: U07.1 COVID-19 (principal); I47.2 Ventricular tachycardia; R55 Syncope and collapse; I25.10 Atherosclerotic heart disease of native coronary artery without angina pectoris; E78.00 Pure hypercholesterolemia, unspecified; I10 Essential (primary) hypertension; I25.2 Old myocardial infarction; J44.9 Chronic obstructive pulmonary disease, unspecified; E11.9 Type 2 diabetes mellitus without complications; E66.9 Obesity, unspecified; Z68.33 Body mass index [BMI] 33.0-33.9, adult; Z95.1 Presence of aortocoronary bypass graft; Z88.1 Allergy status to other antibiotic agents; Z88.2 Allergy status to sulfonamides; Z88.8 Allergy status to other drugs, medicaments and biological substances; Z79.899 Other long term (current) drug therapy; Z79.02 Long term (current) use of antithrombotics/antiplatelets
CPT/HCPCS: 36415; 71045; 80053; 81001; 83735; 84484; 85025; 93005; 96365; 96375; 99285; J0282; J3475; J7030; U0002

== ENCOUNTER 2022-02-01 15:17 | Emergency (ER) | payer MEDICARE, OTHER ==
[2022-02-01] MEDS ORDERED: Sodium Chloride 0.9% 500 ML IV SCH (15:45)
[2022-02-01] MEDS ORDERED: Albuterol/Ipratropium 3.0-0.5 MG/3 ML Neb Soln NEB ONE (15:55)
[2022-02-01 16:21] LABS: CARBON DIOXIDE,CO2 28.5 mmol/L (21.0-32.0); POTASSIUM,K 4.7 mmol/L (3.5-5.1)
[2022-02-01] MEDS ORDERED: Lactated Ringers 1,000 ML IV STA (17:23)
[2022-02-01 19:38] VITALS: BP 115/58; PULSE 63
== END 2022-02-01 19:28 | disposition home or self-care (01) ==
LOC: MW.ED 15:17
DX: I95.1 Orthostatic hypotension (principal); T50.905A Adverse effect of unspecified drugs, medicaments and biological substances, initial encounter; E11.9 Type 2 diabetes mellitus without complications; I11.0 Hypertensive heart disease with heart failure; I50.9 Heart failure, unspecified; I25.10 Atherosclerotic heart disease of native coronary artery without angina pectoris; M19.90 Unspecified osteoarthritis, unspecified site; J44.9 Chronic obstructive pulmonary disease, unspecified; Z79.02 Long term (current) use of antithrombotics/antiplatelets; Z95.1 Presence of aortocoronary bypass graft; Z88.1 Allergy status to other antibiotic agents; Z88.2 Allergy status to sulfonamides; Z88.5 Allergy status to narcotic agent; Z88.8 Allergy status to other drugs, medicaments and biological substances; Z79.899 Other long term (current) drug therapy; Z79.4 Long term (current) use of insulin; Z20.822 Contact with and (suspected) exposure to COVID-19
CPT/HCPCS: 36415; 71045; 80053; 83880; 84439; 84443; 84484; 85025; 85610; 93005; 96360; 96361; 99284; J7040; J7120; U0002; 93010; 99291; J7620-GY

== ENCOUNTER 2022-05-04 13:31 | Emergency (ER) | payer MEDICARE, OTHER ==
[2022-05-04 14:10] VITALS: PULSE 61
[2022-05-04] MEDS ORDERED: Sodium Chloride 0.9% 1,000 ML IV ONE (14:24)
[2022-05-04 15:57] LABS: CARBON DIOXIDE,CO2 27.8 mmol/L (21.0-32.0); POTASSIUM,K 4.5 mmol/L (3.5-5.1)
[2022-05-04 16:42] VITALS: BP 124/75
== END 2022-05-04 16:41 | disposition home or self-care (01) ==
LOC: MW.ED 13:31
DX: I95.9 Hypotension, unspecified (principal); J44.9 Chronic obstructive pulmonary disease, unspecified; I25.10 Atherosclerotic heart disease of native coronary artery without angina pectoris; I10 Essential (primary) hypertension; I25.2 Old myocardial infarction; E11.9 Type 2 diabetes mellitus without complications; E66.9 Obesity, unspecified; Z68.34 Body mass index [BMI] 34.0-34.9, adult; Z88.1 Allergy status to other antibiotic agents; Z88.6 Allergy status to analgesic agent; Z91.018 Allergy to other foods; Z88.2 Allergy status to sulfonamides; Z79.899 Other long term (current) drug therapy; Z79.4 Long term (current) use of insulin; Z20.822 Contact with and (suspected) exposure to COVID-19; Z90.49 Acquired absence of other specified parts of digestive tract
CPT/HCPCS: 36415; 71045; 80053; 81003; 84484; 85025; 93005; 96360; 99285; J7030; U0002; 93010; 99284

== ENCOUNTER 2022-10-08 08:45 | Emergency (ER) | payer MEDICARE, OTHER ==
[2022-10-08] MEDS ORDERED: Diphtheria,Pertussis(Acell),Tetanus Vaccine 0.5 ML Syringe IM ONE (09:24)
[2022-10-08 10:56] VITALS: BP 140/77; PULSE 65
== END 2022-10-08 10:56 | disposition home or self-care (01) ==
LOC: MW.ED 08:45
DX: S60.511A Abrasion of right hand, initial encounter (principal); I25.10 Atherosclerotic heart disease of native coronary artery without angina pectoris; E78.00 Pure hypercholesterolemia, unspecified; I10 Essential (primary) hypertension; I25.2 Old myocardial infarction; J44.9 Chronic obstructive pulmonary disease, unspecified; K21.9 Gastro-esophageal reflux disease without esophagitis; E11.9 Type 2 diabetes mellitus without complications; E66.9 Obesity, unspecified; F17.210 Nicotine dependence, cigarettes, uncomplicated; Z95.1 Presence of aortocoronary bypass graft; Z88.1 Allergy status to other antibiotic agents; Z88.5 Allergy status to narcotic agent; Z88.2 Allergy status to sulfonamides; Z88.8 Allergy status to other drugs, medicaments and biological substances; Z79.02 Long term (current) use of antithrombotics/antiplatelets; Z79.899 Other long term (current) drug therapy; Z79.4 Long term (current) use of insulin; Z68.37 Body mass index [BMI] 37.0-37.9, adult; Z23 Encounter for immunization; W55.03XA Scratched by cat, initial encounter
CPT/HCPCS: 73120-26-RT; 73120-RT; 90471; 90715; 99283; 99283-25

== ENCOUNTER 2022-11-06 20:19 | Emergency (ER) | payer MEDICARE, OTHER ==
[2022-11-06] MEDS ORDERED: Gabapentin 100 MG Cap PO ONE (21:58)
[2022-11-06 22:11] VITALS: PULSE 61
[2022-11-06 23:51] VITALS: BP 97/64
== END 2022-11-06 23:51 | disposition home or self-care (01) ==
LOC: MW.ED 20:19
DX: M25.572 Pain in left ankle and joints of left foot (principal); I25.10 Atherosclerotic heart disease of native coronary artery without angina pectoris; E78.00 Pure hypercholesterolemia, unspecified; I11.0 Hypertensive heart disease with heart failure; I50.30 Unspecified diastolic (congestive) heart failure; I25.2 Old myocardial infarction; J44.9 Chronic obstructive pulmonary disease, unspecified; M19.90 Unspecified osteoarthritis, unspecified site; E11.9 Type 2 diabetes mellitus without complications; K21.9 Gastro-esophageal reflux disease without esophagitis; E66.9 Obesity, unspecified; Z88.1 Allergy status to other antibiotic agents; Z88.2 Allergy status to sulfonamides; Z88.5 Allergy status to narcotic agent; Z88.8 Allergy status to other drugs, medicaments and biological substances; Z79.02 Long term (current) use of antithrombotics/antiplatelets; Z79.4 Long term (current) use of insulin; Z79.899 Other long term (current) drug therapy; Z79.82 Long term (current) use of aspirin; Z68.39 Body mass index [BMI] 39.0-39.9, adult
CPT/HCPCS: 93971; 99283; A9270

== ENCOUNTER 2023-04-20 04:07 | Emergency (ER) | payer MEDICARE, OTHER ==
[2023-04-20] MEDS ORDERED: Acetaminophen 500 MG Tab PO ONE (04:57)
[2023-04-20 05:17] LABS: BASOPHILS ABSOLUTE AUTO 0.1 K/uL (0.0-0.1); BASOPHILS PERCENT AUTO 0.6 % (0.0-1.5); EOSINOPHILS ABSOLUTE AUTO 0.3 K/uL (0.0-0.7); EOSINOPHILS PERCENT AUTO 2.8 % (0.0-7.0); HEMATOCRIT 45.3 % (38.0-50.0); LYMPHOCYTES ABSOLUTE AUTO 1.1 K/uL (0.6-2.4); MEAN CORPUSCULAR HEMOGLOBIN 30.9 pg (27.0-32.0); MEAN CORPUSCULAR HGB CONC 35.3 g/dL (31.0-37.0); MEAN CORPUSCULAR VOLUME 87.5 fL (80.0-98.0); MONOCYTES PERCENT AUTO 8.1 % (0.0-15.0); NEUTROPHILS ABSOLUTE AUTO 9.5 K/uL (1.4-5.7); NEUTROPHILS PERCENT AUTO 79.5 % (48.0-80.0); NRBC ABSOLUTE 0 K/uL; PLATELET COUNT,PLT 205 K/uL (150-400); RED BLOOD CELL COUNT 5.18 M/uL (4.50-5.90); WHITE BLOOD CELL COUNT,WBC 11.94 K/uL (4.0-11.0)
[2023-04-20 05:48] LABS: A/G RATIO 0.8 (0.9-1.6); ALBUMIN 3.1 g/dL (3.4-5.0); BILIRUBIN TOTAL 0.4 mg/dL (0.2-1.0); CALCIUM 9.3 mg/dL (8.5-10.1); CARBON DIOXIDE,CO2 27.3 mmol/L (21.0-32.0); CREATININE 1.2 mg/dL (0.8-1.3); EST CRCL DRUG DOSING (CG) 59.73 mL/min; POTASSIUM,K 4.4 mmol/L (3.5-5.1)
[2023-04-20] MEDS ORDERED: Sodium Chloride 0.9% 1,000 ML IV ONE (06:43)
[2023-04-20] MEDS ORDERED: Ibuprofen 600 MG Tab PO ONE (09:10)
[2023-04-20 09:11] LABS: APPEARANCE,URINE CLEAR; BILIRUBIN,URINE NEGATIVE (NEGATIVE); COLOR,URINE YELLOW; GLUCOSE,URINE >=1000 mg/dL (NEGATIVE); KETONES,URINE NEGATIVE (NEGATIVE); LEUKOCYTE ESTERASE,URINE NEGATIVE (NEGATIVE); NITRITE,URINE NEGATIVE (NEGATIVE); OCCULT BLOOD,URINE NEGATIVE (NEGATIVE); PH,URINE 6.5 (5.0-8.0); PROTEIN,URINE NEGATIVE (NEGATIVE); UROBILINOGEN,URINE 0.2 EU/dL (<2.0)
[2023-04-20 10:17] VITALS: BP 136/81; PULSE 69
== END 2023-04-20 10:17 | disposition home or self-care (01) ==
LOC: MW.ED 04:07
DX: R50.9 Fever, unspecified (principal); J44.9 Chronic obstructive pulmonary disease, unspecified; E11.9 Type 2 diabetes mellitus without complications; I25.10 Atherosclerotic heart disease of native coronary artery without angina pectoris; I10 Essential (primary) hypertension; E78.00 Pure hypercholesterolemia, unspecified; I25.2 Old myocardial infarction; E66.9 Obesity, unspecified; Z68.39 Body mass index [BMI] 39.0-39.9, adult; M19.90 Unspecified osteoarthritis, unspecified site; Z79.02 Long term (current) use of antithrombotics/antiplatelets; Z79.82 Long term (current) use of aspirin; Z79.4 Long term (current) use of insulin; Z79.899 Other long term (current) drug therapy
CPT/HCPCS: 36415; 80053; 81003; 83605; 85025; 87040; 96360; 99283; A9270; J7030; U0002

== ENCOUNTER 2023-06-01 16:56 | Emergency (ER) | payer MEDICARE, OTHER ==
[2023-06-01] MEDS ORDERED: Sodium Chloride 0.9% 2.5 ML Syringe FLUSH PRN (17:38)
[2023-06-01] MEDS ORDERED: Sodium Chloride 0.9% 10 ML Syringe FLUSH PRN (17:38)
[2023-06-01] MEDS ORDERED: Sodium Chloride 0.9% 500 ML IV STA (17:40)
[2023-06-01 18:03] LABS: BASOPHILS ABSOLUTE AUTO 0.1 K/uL (0.0-0.1); BASOPHILS PERCENT AUTO 0.5 % (0.0-1.5); EOSINOPHILS ABSOLUTE AUTO 0.4 K/uL (0.0-0.7); HEMATOCRIT 44.7 % (38.0-50.0); HEMOGLOBIN 15.6 g/dL (13.0-17.0); LYMPHOCYTES ABSOLUTE AUTO 2.4 K/uL (0.6-2.4); LYMPHOCYTES PERCENT AUTO 26.2 % (16.0-40.0); MEAN CORPUSCULAR HEMOGLOBIN 30.6 pg (27.0-32.0); MEAN CORPUSCULAR HGB CONC 34.9 g/dL (31.0-37.0); MEAN CORPUSCULAR VOLUME 87.8 fL (80.0-98.0); MONOCYTES ABSOLUTE AUTO 0.8 K/uL (0.0-0.8); MONOCYTES PERCENT AUTO 8.3 % (0.0-15.0); NEUTROPHILS ABSOLUTE AUTO 5.7 K/uL (1.4-5.7); NRBC ABSOLUTE 0 K/uL; PLATELET COUNT,PLT 239 K/uL (150-400); RED BLOOD CELL COUNT 5.09 M/uL (4.50-5.90); WHITE BLOOD CELL COUNT,WBC 9.32 K/uL (4.0-11.0)
[2023-06-01 18:32] LABS: ALBUMIN 3.4 g/dL (3.4-5.0); BILIRUBIN TOTAL 0.3 mg/dL (0.2-1.0); CALCIUM 9.5 mg/dL (8.5-10.1); CARBON DIOXIDE,CO2 24.4 mmol/L (21.0-32.0); CREATININE 1.5 mg/dL (0.8-1.3); EST CRCL DRUG DOSING (CG) 47.79 mL/min; POTASSIUM,K 4.9 mmol/L (3.5-5.1); PROTEIN TOTAL,TP 6.9 g/dL (6.4-8.2)
[2023-06-01 18:34] LABS: MAGNESIUM 2.2 mg/dL (1.8-2.4)
[2023-06-01 18:40] LABS: INR 1.04 (0.86-1.11)
[2023-06-01 19:10] VITALS: PULSE 60
[2023-06-01 20:16] VITALS: BP 134/75
== END 2023-06-01 20:18 | disposition home or self-care (01) ==
LOC: MW.ED 16:56
DX: I95.2 Hypotension due to drugs (principal); I25.10 Atherosclerotic heart disease of native coronary artery without angina pectoris; I10 Essential (primary) hypertension; E78.00 Pure hypercholesterolemia, unspecified; K21.9 Gastro-esophageal reflux disease without esophagitis; J44.9 Chronic obstructive pulmonary disease, unspecified; E11.9 Type 2 diabetes mellitus without complications; F17.210 Nicotine dependence, cigarettes, uncomplicated; E66.9 Obesity, unspecified; Z68.39 Body mass index [BMI] 39.0-39.9, adult; Z79.82 Long term (current) use of aspirin; Z79.899 Other long term (current) drug therapy; Z88.1 Allergy status to other antibiotic agents; Z88.2 Allergy status to sulfonamides; Z88.5 Allergy status to narcotic agent
CPT/HCPCS: 36415; 71046; 80053; 82947; 83690; 83735; 84443; 84484; 85025; 85610; 93005; 96360; 99285; J3490; J7030; 99282

== ENCOUNTER 2023-12-21 15:45 | Emergency (ER) | payer MEDICARE, OTHER ==
[2023-12-21 15:59] LABS: BASOPHILS ABSOLUTE AUTO 0.13 K/uL (0.00-0.20); BASOPHILS PERCENT AUTO 1.1 % (0.0-1.0); EOSINOPHILS PERCENT AUTO 3.3 % (0.0-6.0); HEMATOCRIT 48.2 % (42.0-52.0); HEMOGLOBIN 16.6 g/dL (14.0-18.0); IMMATURE GRAN ABSOLUTE AUTO 0.07 K/uL (0.00-0.05); IMMATURE GRAN PERCENT AUTO 0.6 % (0.0-0.4); LYMPHOCYTES PERCENT AUTO 22.1 % (24.0-44.0); MEAN CORPUSCULAR HEMOGLOBIN 30.3 pg (28.0-32.0); MEAN CORPUSCULAR HGB CONC 34.4 g/dL (32.0-36.0); MEAN PLATELET VOLUME 8.1 fL (9.4-12.4); MONOCYTES ABSOLUTE AUTO 1.01 K/uL (0.00-0.80); MONOCYTES PERCENT AUTO 8.3 % (0.0-8.0); NEUTROPHILS ABSOLUTE AUTO 7.92 K/uL (1.80-7.70); NEUTROPHILS PERCENT AUTO 64.6 % (41.0-71.0); PLATELET COUNT,PLT 261 K/uL (150-400); RED BLOOD CELL COUNT 5.48 M/uL (4.52-5.90); WHITE BLOOD CELL COUNT,WBC 12.23 K/uL (3.9-11.3)
[2023-12-21] MEDS: Sodium Chloride 0.9% 10 ML Syringe FLUSH PRN (16:09)
[2023-12-21] MEDS: Sodium Chloride 0.9% 2.5 ML Syringe FLUSH PRN (16:09)
[2023-12-21 16:49] LABS: A/G RATIO 0.9 (0.9-1.6); ALBUMIN 3.4 g/dL (3.4-5.0); BILIRUBIN TOTAL 0.4 mg/dL (0.2-1.0); CALCIUM 9.5 mg/dL (8.5-10.1); CARBON DIOXIDE,CO2 28.5 mmol/L (21.0-32.0); CREATININE 1.2 mg/dL (0.8-1.3); EST CRCL DRUG DOSING (CG) 58.92 mL/min; MAGNESIUM 1.8 mg/dL (1.8-2.4); POTASSIUM,K 4.8 mmol/L (3.5-5.1); PROTEIN TOTAL,TP 7.3 g/dL (6.4-8.2); TSH ULTRASENSITIVE 5.66 uIU/mL (0.36-3.74)
[2023-12-21 17:10] VITALS: PULSE 60
[2023-12-21 17:12] LABS: CORONAVIRUS COVID-19 NAA NEGATIVE (NEGATIVE); INFLUENZA A NAA NEGATIVE (NEGATIVE); INFLUENZA B NAA NEGATIVE (NEGATIVE)
[2023-12-21 17:48] VITALS: BP 137/88
== END 2023-12-21 17:47 | disposition home or self-care (01) ==
LOC: MW.ED 15:45
DX: I95.9 Hypotension, unspecified (principal); I25.10 Atherosclerotic heart disease of native coronary artery without angina pectoris; I10 Essential (primary) hypertension; I25.2 Old myocardial infarction; J44.9 Chronic obstructive pulmonary disease, unspecified; E78.00 Pure hypercholesterolemia, unspecified; E11.9 Type 2 diabetes mellitus without complications; E66.9 Obesity, unspecified; M19.90 Unspecified osteoarthritis, unspecified site; Z95.5 Presence of coronary angioplasty implant and graft; Z95.1 Presence of aortocoronary bypass graft; Z79.02 Long term (current) use of antithrombotics/antiplatelets; Z79.4 Long term (current) use of insulin; Z79.82 Long term (current) use of aspirin; Z79.899 Other long term (current) drug therapy; Z75.8 Other problems related to medical facilities and other health care; Z88.2 Allergy status to sulfonamides; Z91.018 Allergy to other foods; Z88.5 Allergy status to narcotic agent; Z88.1 Allergy status to other antibiotic agents
CPT/HCPCS: 0240U; 36415; 70450; 71045; 80053; 83735; 84443; 84484; 85025; 93005; 99284; J3490; 93010; 99282

== ENCOUNTER 2024-01-12 16:28 | Emergency (ER) | payer MEDICARE, OTHER ==
[2024-01-12 17:01] LABS: BASOPHILS ABSOLUTE AUTO 0.08 K/uL (0.00-0.20); BASOPHILS PERCENT AUTO 0.9 % (0.0-1.0); EOSINOPHILS PERCENT AUTO 4.7 % (0.0-6.0); HEMATOCRIT 47.7 % (42.0-52.0); HEMOGLOBIN 16.5 g/dL (14.0-18.0); IMMATURE GRAN ABSOLUTE AUTO 0.03 K/uL (0.00-0.05); IMMATURE GRAN PERCENT AUTO 0.4 % (0.0-0.4); MEAN CORPUSCULAR HEMOGLOBIN 30.8 pg (28.0-32.0); MEAN CORPUSCULAR HGB CONC 34.6 g/dL (32.0-36.0); MEAN CORPUSCULAR VOLUME 89.2 fL (83.0-99.0); MEAN PLATELET VOLUME 8.4 fL (9.4-12.4); MONOCYTES ABSOLUTE AUTO 0.71 K/uL (0.00-0.80); MONOCYTES PERCENT AUTO 8.3 % (0.0-8.0); NEUTROPHILS ABSOLUTE AUTO 4.94 K/uL (1.80-7.70); NEUTROPHILS PERCENT AUTO 57.7 % (41.0-71.0); PLATELET COUNT,PLT 217 K/uL (150-400); RED BLOOD CELL COUNT 5.35 M/uL (4.52-5.90); WHITE BLOOD CELL COUNT,WBC 8.56 K/uL (3.9-11.3)
[2024-01-12] MEDS: fentaNYL 100 MCG/2 ML SDV IVPUSH ONE (17:29)
[2024-01-12] MEDS: fentaNYL 50 MCG/ML SDV IM STA (17:29)
[2024-01-12] MEDS: Ondansetron 4 MG/2 ML SDV IVPUSH STA (17:29)
[2024-01-12 17:47] LABS: BILIRUBIN,URINE NEGATIVE (NEGATIVE); COLOR,URINE YELLOW; GLUCOSE,URINE 500 mg/dL (NEGATIVE); KETONES,URINE NEGATIVE (NEGATIVE); LEUKOCYTE ESTERASE,URINE NEGATIVE (NEGATIVE); NITRITE,URINE NEGATIVE (NEGATIVE); OCCULT BLOOD,URINE MODERATE (NEGATIVE); PH,URINE 7.5 (5.0-8.0); PROTEIN,URINE NEGATIVE (NEGATIVE); UROBILINOGEN,URINE 0.2 EU/dL (<2.0)
[2024-01-12 17:55] LABS: A/G RATIO 0.8 (0.9-1.6); ALBUMIN 3.3 g/dL (3.4-5.0); BILIRUBIN TOTAL 0.5 mg/dL (0.2-1.0); CALCIUM 9.9 mg/dL (8.5-10.1); CARBON DIOXIDE,CO2 30.1 mmol/L (21.0-32.0); CREATININE 1.2 mg/dL (0.8-1.3); EST CRCL DRUG DOSING (CG) 58.92 mL/min; POTASSIUM,K 4.4 mmol/L (3.5-5.1); PROTEIN TOTAL,TP 7.4 g/dL (6.4-8.2)
[2024-01-12 17:58] LABS: APPEARANCE,URINE HAZY; BACTERIA,URINE FEW (NEGATIVE); EPITHELIAL CELLS,URINE RARE (NONE-FEW); WBC,URINE 0-2 (0-5/HPF)
[2024-01-12] MEDS: Iopamidol 755 MG/ML 500 ML Multipack Bottle IVPUSH STA (18:21)
[2024-01-12] MEDS: Sodium Chloride 0.9% 2.5 ML Syringe FLUSH PRN (19:01)
[2024-01-12] MEDS: Sodium Chloride 0.9% 10 ML Syringe FLUSH PRN (19:01)
[2024-01-12 19:03] VITALS: BP 130/71; PULSE 82
== END 2024-01-12 19:30 | disposition home or self-care (01) ==
LOC: MW.ED 16:28
DX: N13.2 Hydronephrosis with renal and ureteral calculous obstruction (principal); I10 Essential (primary) hypertension; I25.10 Atherosclerotic heart disease of native coronary artery without angina pectoris; I25.2 Old myocardial infarction; J44.9 Chronic obstructive pulmonary disease, unspecified; K21.9 Gastro-esophageal reflux disease without esophagitis; E11.9 Type 2 diabetes mellitus without complications; E66.9 Obesity, unspecified; Z75.8 Other problems related to medical facilities and other health care; Z95.1 Presence of aortocoronary bypass graft; Z68.39 Body mass index [BMI] 39.0-39.9, adult
CPT/HCPCS: 36415; 74177; 80053; 81001; 83690; 85025; 99284; J3490; Q9967